=== PATIENT | female | born 1945 | race Caucasian/White ===

== ENCOUNTER 2017-07-01 16:28 | Emergency (ER) | payer MEDICARE, SELFPAY ==
[2017-07-01 16:29] VITALS: BP 188/106; PULSE 82; RESP 18; TEMP 37; O2SAT 98; BMI 24.3
--- NOTE | 2017-07-01 16:39 | NURSING ---
NO OLD EKGS
--- NOTE | 2017-07-01 17:07 | EKG12_ITS ---
Test Reason : PALPS Blood Pressure : / mmHG Vent. Rate : 093 BPM Atrial Rate : 093 BPM P-R Int : 200 ms QRS Dur : 092 ms QT Int : 352 ms P-R-T Axes : 000 -24 073 degrees QTc Int : 437 ms Sinus rhythm with marked sinus arrhythmia Septal infarct , age undetermined Abnormal ECG Confirmed by HAMMAD LLOYD ([id number]), news editor MARISA TORRES ([id number]) on 07/04/2017 2:39:19 PM Referred By: TAYE Confirmed By:HAMMAD LLOYD
--- NOTE | 2017-07-01 17:07 | CT_ITS ---
STUDY: CT ABDOMEN AND PELVIS WITHOUT CONTRAST REASON FOR EXAM: Female, 72 years old. Abdominal pain. History of anal cancer. RADIATION DOSAGE (If Supplied By Facility): CTDIvol = ( 10.5 ) mGy, DLP = ( 409.88 ) mGycm TECHNIQUE: Transaxial images were obtained from the dome of the diaphragm to the symphysis pubis without oral contrast, and without intravenous contrast. Sagittal and coronal images were reconstructed. Individualized dose optimization techniques were used for this CT. COMPARISON: None. FINDINGS: Evaluation of the abdominal viscera is limited in the absence of intravenous contrast. The visualized lung bases are clear. The visualized portions of the heart and pericardium are within normal limits. There are no calcified gallstones present. There are simple cysts noted in the liver. The spleen is normal in size. The pancreas demonstrates an unremarkable unenhanced appearance. The adrenal glands are within normal limits. There are no obstructing renal stones. There is no hydronephrosis. Normal visualized stomach. There is no bowel obstruction or inflammation. There are colonic diverticula without evidence of diverticulitis. The appendix is visualized and appears normal. The aorta is normal in caliber. There is no abdominal or pelvic free air, free fluid, fluid collection or lymphadenopathy. There are no destructive osseous lesions. There is scoliosis noted in the spine. CT/Abdomen/Pelvis without Cont IMPRESSION: No bowel obstruction or inflammation. Colonic diverticuli without evidence of diverticulitis. Normal appendix. No urinary calculi. No hydronephrosis. Hepatic cysts. Scoliosis. Electronically Signed: Jamie Machuca, at 18:01 EDT Tel , Service support ,
--- NOTE | 2017-07-01 17:10 | RAD_ITS ---
STUDY: X-RAY CHEST REASON FOR EXAM: Female, 72 years old. Palpitations TECHNIQUE: Frontal view of the chest COMPARISON: None. FINDINGS: The lungs are clear. There are no pleural effusions. There is no pneumothorax. The heart is normal in size. The visualized osseous structures are within normal limits. RAD/Chest 1 View (Portable) IMPRESSION: No acute thoracic pathology. Electronically Signed: Jamie Machuca, at 17:26 EDT Tel , Service support ,
[2017-07-01 17:22] LABS: Bacteria 0 SEEN /hpf (None Seen); Mucous, Urine 0 SEEN /hpf (<or=2+); Squamous Epithelial Cells - UA 0 SEEN /hpf (5-10); White Blood Cells 0 SEEN /hpf (0-5)
[2017-07-01 17:26] LABS: Absolute Lymphocyte Count 1.61 X10^3/ul (0.83-4.51); Basophil# 0.02 X10^3/uL; Basophil% 0.3 % (0-1); Eosinophil# 0.02 X10^3/uL; Eosinophils% 0.3 % (0-5); Hematocrit 42.7 % (37-47); Hemoglobin 13.8 g/dl (12.0-15.0); Lymphocyte # 1.61 X10^3/ul (4.0); Lymphocyte % 27.1 % (19-41); Mean Corp Hgb Conc 32.3 g/gl (32-36); Mean Corpuscular Hgb 30.4 pg (27.0-32.0); Mean Corpuscular Volume 94.1 fL (81-99); Mean Platelet Vol. 10.8 fl (6.2-12.0); Monocyte# 0.26 X10^3/uL; Monocyte% 4.4 % (0-10); Neutrophil # 4.02 X10^3/uL (2.7-7.7); Neutrophil % 67.7 % (47-70); Platelet Count 286 K/mm3 (150-450); RBC Distribution Width CV 13.5 % (11.6-14.6); RBC Distribution Width SD 46.4 fl (35.1-43.9); Red Blood Count 4.54 M/mm3 (4.2-5.4); White Blood Count 5.9 K/mm3 (4.4-11.0)
[2017-07-01 17:27] LABS: Color, Urine Yellow (Yellow); Glucose, Dipstick Normal (Normal); Ketone-Dipstick 15 mg/dl (Negative); Leukocyte Esterase-Dipstick Negative /ul (Negative); Nitrite-Dipstick Negative (Negative); Occult Blood-Urine 150 /ul (Negative); Protein-Dipstick 100 mg/dl (Negative); Specific Gravity, Urine 1.005 (1.002-1.030); Urine Bilirubin Dipstick Negative (Negative); Urine Clarity Clear (Clear); Urine Urobilinogen Normal (Normal)
[2017-07-01 17:28] LABS: POSITIVE COUNT NO; POSITIVE DIFFERENTIAL NO; POSITIVE MORPHOLOGY NO
[2017-07-01 17:48] LABS: Anion Gap 8 (5-15); BUN 13 mg/dL (7-18); BUN/Creat Ratio 14.8 RATIO (10-20); Calcium,Total 9.1 mg/dL (8.5-10.1); Chloride 105 mmol/L (98-107); Creatinine, Serum 0.88 mg/dL (0.55-1.02); EST Glomerular Filtration Rate 67 mL/min (>60); Est Glom Filt Rate - Afr Amer 81 mL/min (>60); Glucose 112 mg/dL (74-106); Potassium 3.4 mmol/L (3.5-5.1); Sodium Level 141 mmol/L (136-145); Thyroid Stim Hormone (TSH) 1.95 uIU/mL (0.358-3.74)
[2017-07-01 17:49] LABS: Red Blood Cells-Urine 0-5 SEEN /hpf (0-5)
--- NOTE | 2017-07-01 18:17 | ED.VISSUMM ---
- ER Visit Summary Date of Service: 07/01/17 Chief Complaint: [Palpitations] History of Present Illness: The patient is a 72 F [presents to the emergency department chief complaint of palpitations. Patient states that she has had palpitations for years. Patient today was being seen for her 6 month checkup and the nurse practitioner noted that patient's heartbeat was irregular and obtained an EKG which looks suspicious for atrial fibrillation. Patient states that she was seen by her oil spraying machine operator about a week ago and does not believe she was in A. fib at that time. Patient states that she has had palpitations for years however. Patient denies recent illness. Patient has had some intermittent abdominal pain for years. Patient does have a history of ulcerative colitis, mitral valve prolapse kezia anal cancer history and hypothyroidism as well as hypertension.] Physical Examination: [HEENT-PERRLA, EOMI. Cranial nerves II through XII grossly intact. TMs clear. Mucous membranes moist. No adenopathy. Cardiovascular-irregular with no murmurs auscultated. Lungs-clear to auscultation, chest wall stable without crepitus or subcu emphysema Abdomen-normoactive bowel sounds, soft. Patient has some mild tenderness over left lower quadrant. There is no rebound, rigidity, or perineal signs. Extremities-intact ?4, normal range of motion, normal pulses, atraumatic] Test Results: [CBC with differential obtained showed white blood cell count of 5.9, hemoglobin 13.8, hematocrit 43, platelets 286. Chemistries unremarkable. Troponin was 0.07. Urinalysis was normal. TSH was 1.95. EKG obtained showed sinus rhythm with PACs with a ventricular rate of [address] scan of the abdomen pelvis without contrast showed some hepatic cysts, scoliosis, otherwise nothing acute.] Emergency Department Course and Treatment: [I discussed case with Dr. Atif Oseguera who evaluated the EKGs and he is comfortable that this is sinus with PACs did not feel patient needed anticoagulation at this time or emergent hospitalization. He has the patient follow-up with her oil spraying machine operator as an outpatient.] Treatment Plan: [Patient will be discharged to home and advised to follow-up with her oil spraying machine operator within next 5-7 days. Patient also to follow-up with her primary care physician.] Disposition: [Discharged to home in stable condition.] Impression: [Palpitations Abdominal pain-etiology uncertain] This note was generated with [employer] dictation software. It may contain incorrect words, spelling, and punctuation that were not noted in review of the chart prior to signing ED Disposition - Plan for ED Patient: Chief Complaint: Palpitations Referrals: Cortney Palacios [Primary Care Provider] -
--- NOTE | 2017-07-01 18:21 | ED.DCSUM_ITS ---
- ER Visit Summary Date of Service: 07/01/17 Chief Complaint: [Palpitations] History of Present Illness: The patient is a 72 F [presents to the emergency department chief complaint of palpitations. Patient states that she has had palpitations for years. Patient today was being seen for her 6 month checkup and the nurse practitioner noted that patient's heartbeat was irregular and obtained an EKG which looks suspicious for atrial fibrillation. Patient states that she was seen by her community support worker about a week ago and does not believe she was in A. fib at that time. Patient states that she has had palpitations for years however. Patient denies recent illness. Patient has had some intermittent abdominal pain for years. Patient does have a history of ulcerative colitis, mitral valve prolapse kezia anal cancer history and hypothyroidism as well as hypertension.] Physical Examination: [HEENT-PERRLA, EOMI. Cranial nerves II through XII grossly intact. TMs clear. Mucous membranes moist. No adenopathy. Cardiovascular-irregular with no murmurs auscultated. Lungs-clear to auscultation, chest wall stable without crepitus or subcu emphysema Abdomen-normoactive bowel sounds, soft. Patient has some mild tenderness over left lower quadrant. There is no rebound, rigidity, or perineal signs. Extremities-intact ?4, normal range of motion, normal pulses, atraumatic] Test Results: [CBC with differential obtained showed white blood cell count of 5.9, hemoglobin 13.8, hematocrit 43, platelets 286. Chemistries unremarkable. Troponin was 0.07. Urinalysis was normal. TSH was 1.95. EKG obtained showed sinus rhythm with PACs with a ventricular rate of [address] scan of the abdomen pelvis without contrast showed some hepatic cysts, scoliosis, otherwise nothing acute.] Emergency Department Course and Treatment: [I discussed case with Dr. Atif Oseguera who evaluated the EKGs and he is comfortable that this is sinus with PACs did not feel patient needed anticoagulation at this time or emergent hospitalization. He has the patient follow-up with her community support worker as an outpatient.] Treatment Plan: [Patient will be discharged to home and advised to follow-up with her community support worker within next 5-7 days. Patient also to follow-up with her primary care physician.] Disposition: [Discharged to home in stable condition.] Impression: [Palpitations Abdominal pain-etiology uncertain] This note was generated with [employer] dictation software. It may contain incorrect words, spelling, and punctuation that were not noted in review of the chart prior to signing ED Disposition - Plan for ED Patient: Chief Complaint: Palpitations Referrals: Cortney Palacios [Primary Care Provider] -
--- NOTE | 2017-07-01 18:21 | ED.DEP ---
ED Disposition - Plan for ED Patient: Chief Complaint: Palpitations Instructions: ED Palpitations, ED Abdominal Pain Unkn Cause Referrals: Cortney Palacios [Primary Care Provider] - 5-7 Days Additional Instructions: see your pattern mechanic in 3-5 days
[2017-07-01 19:05] VITALS: BP 127/68; PULSE 78; RESP 18; O2SAT 99
== END 2017-07-01 19:21 | disposition home or self-care (01) ==
PROVIDERS: Emergency Provider Emergency Medicine; Family Provider Nurse Practitioner; PCP Nurse Practitioner
DX: R00.2 Palpitations (principal); R10.32 Left lower quadrant pain; I10 Essential (primary) hypertension; I34.1 Nonrheumatic mitral (valve) prolapse; E03.9 Hypothyroidism, unspecified; Z79.82 Long term (current) use of aspirin; Z79.899 Other long term (current) drug therapy; Z85.048 Personal history of other malignant neoplasm of rectum, rectosigmoid junction, and anus
CPT/HCPCS: 71045; 74176; 80048; 81001; 84443; 84484; 85025; 93005; 99284; A4216

== ENCOUNTER → 2019-04-14 12:01 | Outpatient (CLI) | payer MEDICARE, SELFPAY ==
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
== END ==
PROVIDERS: PCP Nurse Practitioner; Referring Provider Nurse Practitioner; Visit Provider Nurse Practitioner
DX: M25.522 Pain in left elbow (principal)
CPT/HCPCS: 73080

== ENCOUNTER → 2019-09-07 15:10 | Outpatient (CLI) | payer MEDICARE, SELFPAY ==
--- NOTE | 2019-09-07 15:18 | RAD_ITS ---
HISTORY: pain ADDITIONAL HISTORY: None provided. COMPARISON: TECHNIQUE: Rib series including FINDINGS: No acute fracture. No consolidation, pleural effusion or pneumothorax. Thoracolumbar scoliosis with degenerative changes. Acute rib fractures can be difficult to visualize radiographically. Follow-up as clinically warranted. RAD/Ribs Bilat 3V No CXR IMPRESSION: No acute rib fracture detected. at 0741 Reported and signed by: Bobbi Maldonado MD Electronically Signed: Bobbi Maldonado MD at 7:41 EDT Tel , Service support ,
--- NOTE | 2019-09-07 15:19 | RAD_ITS ---
HISTORY: pain ADDITIONAL HISTORY: None provided. TECHNIQUE: Lumbar spine 3 views Number of images including paperwork: 2 COMPARISON: None FINDINGS: VERTEBRAE: No acute fracture. VERTEBRAL ALIGNMENT: No traumatic subluxation. Severe thoracolumbar scoliosis with left convex upper curve and right convex lower curve, the latter measuring approximately 45 and the former incompletely visible but measuring at least 40. DISKS AND JOINTS: Discogenic degenerative changes and facet arthropathy. Degenerative changes in the sacroiliac joints. SOFT TISSUES: Unremarkable paraspinous soft tissues. RAD/Lumbar Spine 2 or 3 Views IMPRESSION: 1. No acute findings. 2. Lumbar spondylosis. 3. Thoracolumbar scoliosis. at 0720 Reported and signed by: Bobbi Maldonado MD Electronically Signed: Bobbi Maldonado MD at 7:20 EDT Tel , Service support ,
== END ==
PROVIDERS: PCP Nurse Practitioner; Referring Provider Nurse Practitioner; Visit Provider Nurse Practitioner
DX: M54.5 Low back pain (principal); R07.81 Pleurodynia
CPT/HCPCS: 71110; 72100

== ENCOUNTER 2022-04-22 10:48 | Inpatient (IN) | payer MEDICARE, SELFPAY ==
[2022-04-22 09:05] VITALS: BP 203/112; PULSE 77; RESP 18; TEMP 36.8; O2SAT 98
[2022-04-22 09:09] VITALS: BMI 22.0
[2022-04-22 10:55] VITALS: BP 172/86; PULSE 71; RESP 18; TEMP 36.9; O2SAT 97
--- NOTE | 2022-04-22 10:58 | ECHOD_ITS ---
Reason For Study: HYPERTENSION Procedure This was a 2D Doppler, Color Flow transthoracic echocardiogram. Exam performed portable in patient room. Left Ventricle Normal LV size. Left ventricular systolic function is normal. The estimated ejection fraction is 60 %. Stage 1 diastolic dysfunction. No regional wall motion abnormalities noted. Right Ventricle Normal RV size. Normal systolic function. Atria Normal left atrium. Normal right atrium. Bubble contrast study is positive for PFO. Mitral Valve Mild diffuse mitral valve thickening. Trivial mitral valve insufficiency. Tricuspid Valve Normal tricuspid valve. Aortic Valve Trisinus/trileaflet aortic valve. Mild focal aortic valve calcification. Pulmonic Valve Normal pulmonic valve. Great Vessels Normal aortic root. The pulmonary artery is normal size. Normal inferior vena cava. Pericardium/Pleural No pericardial effusion. Medication Performed a rapid injection of agitated mix of 9 cc saline and 1cc air to assess for atrial septal defect. MMode/2D Measurements & Calculations LVIDd: 3.9 cm IVSd: 0.92 cm LVOT diam: 2.0 cm LVIDs: 2.7 cm LVPWd: 0.91 cm RVDd: 2.7 cm FS: 31.0 % LVOT area: 3.1 cm2 Ao root diam: 3.3 cm LAV(MOD-bp): 33.2 ml LVAd ap4: 22.5 cm2 LAV(MOD-bp) Indexed: 20.0 ml/m2 LVLd ap4: 6.7 cm LAV(MOD-sp2): 29.8 ml EDV(MOD-sp4): 60.9 ml LAV(MOD-sp4): 31.9 ml EDV(sp4-el): 64.3 ml LVAs ap4: 12.4 cm2 LVLs ap4: 5.6 cm ESV(MOD-sp4): 23.0 ml ESV(sp4-el): 23.1 ml EF(MOD-sp4): 62.3 % EF(sp4-el): 64.0 % SV(MOD-sp4): 37.9 ml SV(sp4-el): 41.1 ml LA A4 area: 13.4 cm2 LA dimension(2D): 3.1 cm RA A4 area: 11.7 cm2 Time Measurements MV dec time: 0.30 sec Doppler Measurements & Calculations MV E max mango: 56.1 cm/sec Lat Peak E' Mango: 8.4 cm/sec Med Peak E' Mango: 4.1 cm/sec MV A max mango: 81.0 cm/sec E/E' lat: 6.6 E/E' med: 13.8 MV E/A: 0.69 Ao V2 max: 176.5 cm/sec LV V1 max: 84.7 cm/sec SV(LVOT): 56.3 ml Ao max P.5 mmHg LV V1 max P.9 mmHg Ao V2 mean: 125.8 cm/sec LV V1 mean P.6 mmHg Ao mean P.0 mmHg LV V1 mean: 58.4 cm/sec Ao V2 VTI: 32.1 cm LV V1 VTI: 18.1 cm AV (velocity ratio): 0.57 LISA(I,D): 1.8 cm2 LISA(V,D): 1.5 cm2 PA V2 max: 61.2 cm/sec ECHO/Echo Complete Interpretation Summary Normal LV size. Left ventricular systolic function is normal. The estimated ejection fraction is 60 %. Stage 1 diastolic dysfunction. Mild focal aortic valve calcification. Ordering Physician: Christen Maza Referring Physician: PAULINA CIFUENTES Performed By: Natalia Mcmanus RDCS
--- NOTE | 2022-04-22 10:58 | PCM.HP.STD ---
HPI - General General Date of Admission: 04/22/22 Date of Service: 04/22/22 Chief Complaint: generalized weakness/CP/Reflux HPI Narrative NANI HARDIN, is a 77 F who presented to [facility] with several symptoms including transient chest pain, generalized muscle aches, and weakness as well as reflux. Patient was evidently feeling well up until last evening when her symptoms started. She stated the pain in her chest started at her left elbow and went up her left arm across her chest and down into her right elbow. She had transient acid reflux with this episode. She also reported generalized weakness with body aching all over along with weakness that was present all over her body. The weakness has since resolved and the patient is now able to get up independently to use the bathroom however she states her muscles are sore.. Her blood pressure was noted to be markedly elevated in the 200s systolic with diastolics greater than 100 at the outside facility. Her initial troponin was found to be elevated at 97 with a repeat of 103.3. Given her troponin elevation it was felt that she would potentially need to have cardiology consultation therefore she was transferred here for further care. The patient indicates that she has had history of elevated blood pressure and there have been recent changes to her antihypertensives with an increase in her lisinopril with the last few weeks. She evidently had stopped taking her lisinopril however, it was felt that she had some tongue and lip swelling (angioedema) that might have been related to this so her meteorology instructor stopped this medication. She states she saw her meteorology instructor earlier this week and they were going to start her on a new antihypertensives as well as Eliquis but the prescriptions were never sent to the pharmacy and she tried to call the office but got no response. She is frustrated with her primary meteorology instructor and would like to transfer her care to Dr. Huston if possible. She reports that she had an event monitor at which time paroxysmal atrial fibrillation was identified and that was the reason for potentially initiating her Eliquis. She was in sinus rhythm on admission and we will monitor on telemetry and likely discharge her on Eliquis with referral to Dr. Huston at discharge. At the time of admission at this facility her temperature was 98.2, heart rate 77, blood pressure 102/112, respiratory rate is 18 and oxygen saturations were 98% on room air. Her CBC was unremarkable. Her CMP was unremarkable. Her liver functions are normal. Her TSH was 14.30 and a free T4 is pending. Her repeat troponin here was 104. She was admitted the PCU will be monitored on telemetry. I believe that her troponin elevation is likely related to her severely elevated blood pressure we will check an echocardiogram and try to obtain improved control of her blood pressure. I will refer her to cardiology at outpatient. If she is clinically stable and her troponins do not increase any further I will likely not pursue a stress test during this hospitalization. [facility] Medical History Anal cancer GERD (gastroesophageal reflux disease) Hypothyroidism Irritable bowel disease MVP (mitral valve prolapse) Ovary absent PAF (paroxysmal atrial fibrillation) Ulcerative colitis Vitamin D deficiency Home Medications aspirin 81 mg chewable tablet 81 mg PO DAILY Heart 07/01/17 [History Last Taken Unknown] cholecalciferol (vitamin D3) 25 mcg (1,000 unit) capsule (Vitamin D3) 1,000 unit PO QODAY Supplement 07/01/17 [History Last Taken Unknown] cyanocobalamin (vitamin B-12) 1,000 mcg tablet 1,000 mcg PO QODAY Supplement 07/01/17 [History Last Taken Unknown] levothyroxine 75 mcg tablet 75 mcg PO DAILY Thyroid 07/01/17 [History Last Taken Unknown] lisinopril 2.5 mg tablet 2.5 mg PO DAILY BP 07/01/17 [History Last Taken Unknown] pantoprazole 40 mg tablet,delayed release 40 mg PO DAILY GI 07/01/17 [History Last Taken Unknown] Allergy/AdvReac Type Severity Reaction Status Date / Time atenolol [From Tenormin] Allergy PT UNSURE Verified 04/22/22 09:15 OF REACTION Sulfa (Sulfonamide Allergy Other Verified 07/01/17 16:31 Antibiotics) Family History (Updated 04/22/22 @ 13:[address] Christen Maza DO) Other CAD (coronary artery disease) Heart disease Hypertension Surgical History (Updated 04/22/22 @ 13:[address] Christen Maza DO) History of right oophorectomy Surgical History unable to obtain unable to obtain Social History (Updated 04/22/22 @ 13:[address] Christen Maza DO) household members: spouse housing: house Smoking Status: Never smoker alcohol intake: never substance use type: does not use ROS Constitutional Constitutional: Reports fatigue and weakness; Denies anorexia, change in weight, chills, fever(s), malaise, night sweats or other Eyes Eyes: Denies blurry vision, change in eye color, change in vision, discharge from eye(s), double vision, erythema, eye pain, loss of vision or other ENT HEENT: Reports hearing loss and nasal congestion; Denies abnormal hearing, dysphagia, ear pain, epistaxis, headache(s), nasal discharge, post nasal drip, sinus pressure, sore throat or other Cardiovascular Cardiovascular: Denies chest pain, claudication, dyspnea on exertion, edema, lightheadedness, orthopnea, palpitations, paroxysmal nocturnal dyspnea, rapid heart rate, syncope or other Respiratory/Chest Respiratory/Chest: Denies cough, dyspnea, excessive phlegm production, hemoptysis, productive cough, shortness of breath at rest, shortness of breath with exertion, wheezing or other Gastrointestinal Gastrointestinal: Denies abdominal pain, coffee ground emesis, constipation, diarrhea, dyspepsia, hematemesis, hematochezia, loose stools, melena, nausea, vomiting or other Genitourinary Genitourinary: Reports urinary incontinence; Denies burning urination, difficulty urinating, dysuria, hematuria, nocturia, urinary frequency, urinary hesitancy, urinary urgency or other Musculoskeletal Musculoskeletal: Reports myalgias; Denies arthralgias, back pain, joint pain, joint stiffness, joint swelling, neck pain or other Neurologic Neurologic: Reports headache(s), numbness and paresthesias; Denies abnormal gait, abnormal speech, confusion, disequilibrium, dizziness, focal weakness, seizure-like activity, seizures, syncope, tingling, tremor(s) or other Psychiatric Psychiatric: Reports anxiety; Denies depression, homicidal ideation, suicidal ideation or other Endocrine Endocrinology: Denies change in body appearance, cold intolerance, excessive sweating, heat intolerance, polydipsia, polyuria or other Hematologic/Lymphatic Hematologic/Lymphatic: Reports lymphadenopathy; Denies anemia, easy bleeding, easy bruising or other Allergic/Immunologic Allergic/Immunologic: Denies rhinitis, hives, eczemia, asthma or other Vital Signs Vital Signs Vital Signs: 04/22/22 09:05 04/22/22 10:55 Temperature 98.2 F 98.4 F Temperature Source Oral Oral Pulse Rate 77 71 Respiratory Rate 18 18 Blood Pressure 203/112 H 172/86 H Blood Pressure Mean 142 114 Blood Pressure Source Monitor Monitor Blood Pressure Position Semi-Fowlers Semi-Fowlers Blood Pressure Location Right Arm Right Arm Pulse Ox 98 97 Oxygen Delivery Method Room Air Room Air Weight Weight: 60 kg Body Mass Index (BMI) 22.0 Physical Exam Const alert and oriented x3 Constitutional Narrative: Older, white female, sitting up in bed, very verbose and appears anxious, daughter and granddaughter at bedside, nontoxic and healthy appearing HEENT normocephalic, head/scalp atraumatic, hearing grossly normal bilaterally and moist oral mucous membranes HEENT Narrative: Dentition is fair, Mallampati is 1-2, no thrush Eyes PERRL, EOMs intact bilaterally and conjunctivae normal Eyes Narrative: Scleral icterus Neck No no lymphadenopathy, supple and no JVD Neck Narrative: Very slight submandibular lymphadenopathy bilaterally-patient indicates this is chronic and they have been following it, no thyroid enlargement or nodules noted Resp normal respiratory effort, no retractions, no use of accessory muscles and clear to auscultation bilaterally Auscultation: Negative for crackles, rhonchi or wheezes Cardio regular rate, regular rhythm, S1 normal heart sound, S2 normal heart sound, no murmurs, no rub, no clicks and no JVD Cardio Narrative: S4 gallop present GI normal to inspection, nondistended, normoactive bowel sounds, soft to palpation and non-tender Extremity no clubbing, cyanosis or edema Extremity Narrative: 2+ pedal pulses, 2+ radial pulses, cap refills 2+, tenderness with palpation of large muscle group specifically distal lower extremities but no abnormalities upon observation Skin no rashes or lesions noted, no wounds, skin turgor normal, no jaundice, no petechiae and no mottling Neuro oriented x3, CN's II-XII intact bilaterally, moves all extremities and no focal motor deficits Psych Psych Narrative: Pleasant, somewhat of a tangential thought process Mood & Affect: anxious Results Lab / Micro Data Attestation: I reviewed the patient's lab results. Result Diagrams: 04/22/22 11:07 04/22/22 11:07 Assessment & Plan Assessment/Plan (1) Hypertensive emergency: (2) Myalgia: (3) Elevated troponin: (4) 1st degree AV block: (5) Elevated TSH: PLAN: Plan Hypertensive emergency -Patient presented markedly hypertensive with blood pressures in the 200s over 1 teens systolic with associated troponin elevation and chest pain -Patient is currently chest pain-free -Cycle cardiac enzymes--> 97 and 103.3 prior to transfer -Check echocardiogram -Start Coreg 6.25 twice daily -Patient reports she may be allergic to lisinopril with possible angioedema therefore we will discontinue her lisinopril and start her on amlodipine 5 mg daily -As needed hydralazine available for systolic pressure greater than 180 -Goal blood pressure today between 150 and 180 systolic -We will plan to drop further in the next 24 hours and reassess her symptoms Elevated troponin -Suspect related to the above -Cardiac enzymes cycled -Check echocardiogram -Consider stress test depending on echo and overall clinical symptoms -Patient would like to follow-up with a new meteorology instructor after discharge and will make referral to Dr. Huston First-degree heart block -Stable -No acute issues Elevated TSH -TSH is 14.3 -Check free T4 -Patient has hypothyroidism at baseline and takes levothyroxine Myalgias -Resolving -Check CK Paroxysmal atrial fibrillation -Patient is currently in normal sinus rhythm -Patient states she had an 30-day event monitor which showed periodic episodes of A. fib -Patient is not on rate controlling medication -Patient has not been started on Eliquis although per her the meteorology instructor she had been seeing told her that she was going to start her on Eliquis approximately 5 days ago but never sent a prescription History of ulcerative colitis -Patient states she is had multiple colonoscopies -Patient also with history of anal cancer which is in remission -Patient is not on any baseline medication for her UC -Not anemic -Recommend outpatient follow-up with GI for ongoing recommended colonoscopies History of anal cancer -No acute issues -Remission MVP -Echocardiogram pending GERD -Continue PPI Seasonal allergies -Continue home allergy medicine DVT prophylaxis -Heparin twice daily -SCDs CODE STATUS -Full code as per discussion on admission Charges/Coding Visit Charges Inpatient E&M: 19657 Init Hosp L3
[2022-04-22 11:13] LABS: Hematocrit 41.5 % (37-47); Hemoglobin 13.2 g/dL (12.0-15.0); Mean Corp Hgb Conc 31.8 g/dL (32-36); Mean Corpuscular Hgb 30.3 pg (27.0-32.0); Mean Corpuscular Volume 95.4 fL (81-99); Mean Platelet Vol. 10.1 fl (6.2-12.0); Platelet Count 271 K/mm3 (150-450); RBC Distribution Width CV 13.2 % (11.6-14.6); Red Blood Count 4.35 M/mm3 (4.2-5.4); White Blood Count 6.2 K/mm3 (4.4-11.0)
[2022-04-22 11:37] LABS: ALB/GLOB Ratio 1.1 RATIO (0.9-2.4); AST(SGOT) 11 U/L (15-37); Alanine Aminotransfer ALT/SGPT 14 U/L (13-56); Albumin, Serum 3.9 g/dL (3.2-5.0); Alkaline Phosphatase 64 U/L (45-117); Anion Gap 7 (5-15); BUN 14 mg/dL (7-18); BUN/Creat Ratio 17.3 RATIO (10-20); Calcium,Total 9.1 mg/dL (8.5-10.1); Chloride 109 mmol/L (98-107); Creatinine, Serum 0.81 mg/dL (0.55-1.02); EST Glomerular Filtration Rate 73 mL/min (>60); Est Glom Filt Rate - Afr Amer 89 mL/min (>60); Estimated Creatinine Clearance 52.34 ml/min; Globulin 3.5 g/dL (2.2-4.2); Glucose 105 mg/dL (74-106); Magnesium 2.1 mg/dL (1.6-2.6); Potassium 3.9 mmol/L (3.5-5.1); Protein, Total 7.4 g/dL (6.4-8.2); Sodium Level 143 mmol/L (136-145)
[2022-04-22 12:28] LABS: Troponin-I HS 104 pg/mL (3.0-54.0)
[2022-04-22 13:37] VITALS: BP 142/100; PULSE 82; RESP 16; TEMP 36.7; O2SAT 95
[2022-04-22] MEDS: amLODIPine 5 MG Tablet PO (13:42)
[2022-04-22] MEDS: 0.9% Saline Lock 10 ML Syringe IV (13:42)
[2022-04-22 14:04] VITALS: O2SAT 95
[2022-04-22 14:24] LABS: T4 Free Direct 0.92 ng/dL (0.76-1.46); Troponin-I HS 106 pg/mL (3.0-54.0)
[2022-04-22 14:33] LABS: CPK Total, Creatine Kinase 97 U/L (26-192)
[2022-04-22 14:39] LABS: Mucous, Urine 0 SEEN /hpf (<or=2+)
[2022-04-22 14:47] LABS: Bacteria 2+ /hpf (None Seen); Color, Urine Yellow (Yellow); Glucose, Dipstick Normal (Normal); Ketone-Dipstick Negative (Negative); Leukocyte Esterase-Dipstick 25 /ul (Negative); Nitrite-Dipstick Negative (Negative); Occult Blood-Urine 150 /ul (Negative); Protein-Dipstick 30 mg/dl (Negative); Red Blood Cells-Urine 5-10 SEEN /hpf (0-5); Specific Gravity, Urine 1.015 (1.002-1.030); Squamous Epithelial Cells - UA 0-5 SEEN /hpf (5-10); Urine Bilirubin Dipstick Negative (Negative); Urine Clarity Clear (Clear); Urine Urobilinogen Normal (Normal); White Blood Cells 5-10 SEEN /hpf (0-5)
[2022-04-22 16:38] VITALS: BP 157/83; PULSE 76; RESP 16; TEMP 36.5; O2SAT 95
[2022-04-22 18:25] LABS: Troponin-I HS 104 pg/mL (3.0-54.0)
[2022-04-22 21:09] VITALS: BP 145/106; PULSE 81; RESP 18; TEMP 36.7; O2SAT 97
[2022-04-22] MEDS: Carvedilol 6.25 MG Tablet PO (21:13)
[2022-04-22] MEDS: Heparin Injection (Vial) 5,000 UNIT/ML VIAL 5000 UNIT SC (21:13)
[2022-04-22] MEDS: Acetaminophen 325 MG Tablet 650 MG PO (21:14)
[2022-04-23 03:10] VITALS: BP 134/106; PULSE 49; RESP 18; TEMP 36.7; O2SAT 96
[2022-04-23] MEDS: Levothyroxine 75 MCG Tablet PO (06:03)
[2022-04-23] MEDS: Acetaminophen 325 MG Tablet 650 MG PO (06:04)
[2022-04-23 06:48] LABS: Absolute Lymphocyte Count 1.97 X10^3/uL (0.83-4.51); Basophil# 0.04 X10^3/uL; Basophil% 0.9 % (0-1); Eosinophil# 0.12 X10^3/uL; Eosinophils% 2.8 % (0-5); Hemoglobin 13.3 g/dL (12.0-15.0); Lymphocyte # 1.97 X10^3/ul (0.83-4.51); Lymphocyte % 45.3 % (19-41); Mean Corp Hgb Conc 32.4 g/dL (32-36); Mean Corpuscular Hgb 30.7 pg (27.0-32.0); Mean Corpuscular Volume 94.7 fL (81-99); Mean Platelet Vol. 10.5 fl (6.2-12.0); Monocyte# 0.23 X10^3/uL; Monocyte% 5.3 % (0-10); NRBC Flagged by Analyzer 0 % (0-5); Neutrophil # 1.98 X10^3/uL (2.7-7.7); Neutrophil % 45.5 % (47-70); Platelet Count 266 K/mm3 (150-450); RBC Distribution Width CV 13.4 % (11.6-14.6); RBC Distribution Width SD 46.9 fl (35.1-43.9); Red Blood Count 4.33 M/mm3 (4.2-5.4); White Blood Count 4.4 K/mm3 (4.4-11.0)
[2022-04-23 07:28] VITALS: O2SAT 98
[2022-04-23 07:30] LABS: Anion Gap 9 (5-15); BUN 14 mg/dL (7-18); BUN/Creat Ratio 18.3 RATIO (10-20); Calcium,Total 9.4 mg/dL (8.5-10.1); Chloride 105 mmol/L (98-107); Creatinine, Serum 0.76 mg/dL (0.55-1.02); EST Glomerular Filtration Rate 78 mL/min (>60); Est Glom Filt Rate - Afr Amer 94 mL/min (>60); Estimated Creatinine Clearance 42.39 ml/min; Glucose 94 mg/dL (74-106); Potassium 3.6 mmol/L (3.5-5.1); Sodium Level 141 mmol/L (136-145)
[2022-04-23 07:48] LABS: Phosphorus 3.5 mg/dL (2.5-4.9)
[2022-04-23 08:25] VITALS: BP 131/98; PULSE 78; RESP 16; TEMP 36.5; O2SAT 96
[2022-04-23] MEDS: Aspirin 81 MG TAB.CHEW PO (09:08)
[2022-04-23] MEDS: Carvedilol 6.25 MG Tablet PO (09:08)
[2022-04-23] MEDS: amLODIPine 5 MG Tablet PO (09:09)
[2022-04-23] MEDS: Pantoprazole Sodium 40 MG Tablet PO (09:09)
[2022-04-23] MEDS: Heparin Injection (Vial) 5,000 UNIT/ML VIAL 5000 UNIT SC (09:09)
--- NOTE | 2022-04-23 11:15 | CASEMGMT ---
TAVO PINEDO Face to Face with patient for initial transition planning/care coordination assessment. RN CM introduced self and role at [facility]. Patient lying in bed, alert and oriented, family is at bedside. Patient willing to participate in assessment and is able to answer all questions appropriately. Care providers, pharmacy, and demographics verified. Patient wishes to discharge home, denies need for home health at this time. Patient states she has no further needs or concerns at this time. CM to follow for discharge planning needs that may arise. PCP: Alisia Goode NP Specialists: Robel butter grader; Alize urologist Preferred Pharmacy: [facility] Insurance: [facility] Prescription Benefit: yes Living Will/HPOA: yes, daughter Ena You LNOK: , daughter Living Arrangements: Patient lives with in a mobile home with 3-5 steps to enter. Patient states she is independent at home. Transportation: self, daughter DME/HHC: Patient has shower chair, cane, grab bars, walker, rollator at home. No previous HHC or SNF. Disposition Plan: Patient to discharge home with family support and follow-up plans in place. Janice VAUGHN, RN, CM
--- NOTE | 2022-04-23 14:18 | DS.PCM_ITS ---
Providers Date of Admission: 04/22/22 Date of Discharge: 04/23/22 Primary Care Physician: ASHLIE Hatch Reason For Visit: NSTEMI/HTN EMERGENCY Diagnosis Discharge Diagnosis (1) Hypertensive emergency: Status: Acute Code(s): I16.1 - Hypertensive emergency (2) Myalgia: Status: Acute Code(s): M79.10 - Myalgia, unspecified site (3) Elevated troponin: Status: Acute Code(s): R77.8 - Other specified abnormalities of plasma proteins (4) 1st degree AV block: Status: Acute Code(s): I44.0 - Atrioventricular block, first degree (5) Elevated TSH: Status: Acute Code(s): R79.89 - Other specified abnormal findings of blood chemistry Medications at Discharge Home Medications aspirin 81 mg chewable tablet 81 mg PO DAILY Heart 07/01/17 cholecalciferol (vitamin D3) 25 mcg (1,000 unit) capsule (Vitamin D3) 1,000 unit PO QODAY Supplement 07/01/17 cyanocobalamin (vitamin B-12) 1,000 mcg tablet 1,000 mcg PO QODAY Supplement 07/01/17 pantoprazole 40 mg tablet,delayed release 40 mg PO DAILY GI 07/01/17 bimatoprost 0.01 % eye drops (Lumigan) 1 drp EACH EYE DAILY Glaucoma 04/22/22 amlodipine 10 mg tablet 10 mg PO DAILY #10 tabs 04/23/22 apixaban 5 mg tablet (Eliquis) 5 mg PO BID #60 tabs 04/23/22 levothyroxine 75 mcg tablet 88 mcg PO .Every other day Thyroid #15 tabs 04/23/22 Hospital Course Operations None Procedures 2-D Echocardiogram and EKG Summary of Care Provided Minutes Spent on Discharge: 36 Hospital Course: Mrs. Pineda is a 77-year-old white female who presented to [facility] with several symptoms including transient chest pain, generalized muscle aches, and weakness as well as reflux.? Patient was?evidently feeling well up until the evening prior to presentation when her symptoms started. She stated the pain in her chest started at her left elbow and went up her left arm across her chest and down into her right elbow.? She had transient acid reflux with this episode.? She also reported generalized weakness with body aching all over along with weakness that was present all over her body.? The weakness has since resolved and the patient is now able to get up independently to use the bathroom however she states her muscles are sore..? Her blood pressure was noted to be markedly elevated in the 200s systolic with diastolics greater than 100 at the outside facility.? Her initial troponin was found to be elevated at 97 with a repeat of 103.3.? Given her troponin elevation, it was felt that she would potentially need to have cardiology consultation therefore she was transferred here for further care, however the case was not discussed with cardiology prior to transport.? The patient indicated that she has had history of elevated blood pressure and there have been recent changes to her antihypertensives with an increase in her lisinopril within the last few weeks.? She had stopped taking her lisinopril however, as it was felt that she had some tongue and lip swelling (angioedema) that might have been related to this.? She stateed she saw her aircraft maintenance manager earlier in the week prior to presentation and they were going to start her on a new antihypertensives as well as Eliquis but the prescriptions were never sent to the pharmacy and she tried to call the office but got no response.? She is frustrated with her primary aircraft maintenance manager and would like to transfer her care to Dr. Huston if possible.? She reports that she had an event monitor at which time paroxysmal atrial fibrillation was identified and that was the reason for potentially initiating her Eliquis.? She was admitted to the PCU and her cardiac enzymes were cycled. We did assess a CPK given her myalgias which was normal. Again, her initial was 97 with a repeat of 103. Here they were 104, 106, and 104 patient had no chest pain during her hospital course. We initially started her on Coreg 6.25 and amlodipine 5 mg however she developed some bradycardia with the Coreg so this was discontinued and the amlodipine was increased to 10 mg. By the time of discharge we were able to get her blood pressures down into the 130s systolic over 98 diastolic. An echocar diogram was done and showed a normal LV with an EF of 60%, stage I diastolic dysfunction and mild aortic valve calcification., She did have diffuse mitral valve thickening but no insufficiency, echo was positive for PFO however patient did report on admission that she has a history and this is known. I suspect she will need some ongoing titration and have recommended follow-up blood pressure check within the week with her primary care provider and a follow-up appointment with her primary care provider within the next 2 weeks. Since she has a history of atrial fibrillation we did go ahead and send a 1 month supply of Eliquis to her pharmacy as well as a 1 month supply of amlodipine with 1 month refill. We did also give her referral for Dr. Huston given her desire to transfer care. I did recommend she follow-up with him in the next month. Discharge diagnoses: Hypertensive emergency-resolved Elevated troponin secondary to markedly elevated blood pressure First-degree heart block Elevated TSH with normal free T4 Myalgias Stage I diastolic dysfunction PAF History of ulcerative colitis History of anal cancer MVP PFO GERD Seasonal allergies Physical Exam Const alert, oriented x3, no apparent distress, average body habitus, no limitations, healthy appearing and well nourished Constitutional Narrative: Older, white female, sitting up in bed, very verbose and appears anxious, daughter and granddaughter at bedside, nontoxic and healthy appearing General Appearance: cooperative, comfortable, well kempt and well developed Orientation / Consciousness: awake, oriented to person, oriented to place and oriented to time Exam Limitations: no limitations HEENT normocephalic, head/scalp atraumatic, hearing grossly normal bilaterally and moist oral mucous membranes HEENT Narrative: Dentition is fair, Mallampati is 2, no thrush Eyes PERRL, EOMs intact bilaterally and conjunctivae normal Eyes Narrative: No scleral icterus Neck No no lymphadenopathy, supple, no JVD and no carotid bruits Neck Narrative: Very slight submandibular lymphadenopathy bilaterally-patient indicates this is chronic and they have been following it, no thyroid enlargement or nodules noted Resp normal respiratory effort, no retractions, no use of accessory muscles and clear to auscultation bilaterally Auscultation: Negative for crackles, rhonchi or wheezes Cardio regular rate, regular rhythm, S1 normal heart sound, S2 normal heart sound, no murmurs, no rub, no clicks and no JVD Cardio Narrative: S4 gallop present GI normal to inspection, nondistended, normoactive bowel sounds, soft to palpation and non-tender Extremity no clubbing, cyanosis or edema Extremity Narrative: 2+ pedal pulses, 2+ radial pulses, cap refills 2+, tenderness of large muscle groups improved in last 24 hours Skin no rashes or lesions noted, no wounds, skin turgor normal, no jaundice, no petechiae and no mottling Neuro oriented x3, CN's II-XII intact bilaterally, moves all extremities, no focal motor deficits and no sensory deficits noted Speech: speech normal Motor Exam: strength 5/5 throughout Psych Psych Narrative: Pleasant, somewhat of a tangential thought process, anxious Mood & Affect: anxious Weight / BMI Weight Weight: 60 kg Body Mass Index (BMI) 22.0 ABG / Lab / Microbiology Data Result Diagrams: 04/23/22 05:55 04/23/22 05:55 Laboratory: Laboratory Results - last 24 hr 04/22/22 10:55: Urine Color Yellow, Urine Clarity Clear, Urine pH 6.0, Ur Specific [place] 1.015, Urine Protein 30 H, Urine Glucose (UA) Normal, Urine Ketones Negative, Urine Occult Blood 150 H, Urine Nitrite Negative, Urine Bilirubin Negative, Urine Urobilinogen Normal, Ur Leukocyte Esterase 25 H, Urine RBC 5-10 SEEN, Urine WBC 5-10 SEEN, Ur Squamous Epith Cells 0-5 SEEN, Urine Bacteria 2+, Urine Mucus 0 SEEN 04/22/22 13:57: Troponin I High Sens 106 H, Free T4 0.92 04/22/22 13:57: Total Creatine Kinase 97 04/22/22 17:52: Troponin I High Sens 104 H 04/23/22 05:55: Sodium 141, Potassium 3.6, Chloride 105, Carbon Dioxide 27.0, Anion Gap 9, BUN 14, Creatinine 0.76, Estim Creat Clear Calc 42.39, Est GFR (MDRD) Af Amer 94, Est GFR (MDRD) Non-Af 78, BUN/Creatinine Ratio 18.3, Glucose 94, Calcium 9.4 04/23/22 05:55: WBC 4.4, RBC 4.33, Hgb 13.3, Hct 41.0, MCV 94.7, MCH 30.7, MCHC 32.4, RDW Std Deviation 46.9 H, RDW Coeff of Reinaldo 13.4, Plt Count 266, MPV 10.5, Immature Gran % (Auto) 0.200, Neut % (Auto) 45.5 L, Lymph % (Auto) 45.3 H, [place] % (Auto) 5.3, Eos % (Auto) 2.8, Baso % (Auto) 0.9, Absolute Neuts (auto) 2.0, Absolute Lymphs (auto) 1.97, Nucleated RBC % 0 04/23/22 05:55: Phosphorus 3.5 Radiography Diagnostic Testing: Radiology Impression Echocardiogram 04/22/22 10:58 Interpretation Summary Normal LV size. Left ventricular systolic function is normal. The estimated ejection fraction is 60 %. Stage 1 diastolic dysfunction. Mild focal aortic valve calcification. Ordering Physician: Christen Maza Referring Physician: PAULINA CIFUENTES Performed By: Natalia Mcmanus RDCS Meaningful Use Info Meaningful Use Diagnoses (Choose all that apply): None applicable Discharge Plan Admission Admit Date/Time: 04/22/22 08:57 Primary Reason for Your Visit: Troponin elevation Attending Provider: Christen Maza Primary Care Provider: Paulina Cifuentes NP Consulting Providers: Aleja Lira Discharge Orders/Prescriptions Prescriptions: New amlodipine 10 mg Tablet 10 mg PO DAILY Qty: 10 0RF Eliquis 5 mg tablet 5 mg PO BID Qty: 60 0RF Continued cyanocobalamin (vitamin B-12) 1,000 MCG tablet 1,000 mcg PO QODAY pantoprazole 40 MG tablet 40 mg PO DAILY cholecalciferol (vitamin D3) [Vitamin D3] 1,000 UNIT capsule 1,000 unit PO QODAY aspirin 81 MG tablet,chewable 81 mg PO DAILY Lumigan 0.01 % Drops 1 drp EACH EYE DAILY Changed levothyroxine 75 MCG tablet 88 mcg PO .Every other day Qty: 15 0RF Discontinued lisinopril 2.5 MG tablet 2.5 mg PO DAILY Referrals / Follow Up: Alisia Goode NP-C [Med Staff - Adv Practice Prof] - Within 1 Week (Call later today or tomorrow to make a follow-up appointment to be seen for posthospital follow-up and blood pressure check) Paulina Cifuentes NP, SUPERVISING FILM OR VIDEOTAPE EDITOR-C [Primary Care Provider] - Saud Huston MD [Med Staff - Active Staff] - Within 1 Month (call for an appt on 04/24/2022) Disposition Disposition (needs filled in before D/C Order can be placed): Home, Self Care Charges/Coding Visit Charges Inpatient E&M: 79224 Disch Hosp >30min
--- NOTE | 2022-04-23 16:11 | PHA.DC.MC ---
Pharmacy Service has performed discharge medication reconciliation and counseling for this patient. 1. AMLODIPINE 10MG PO DAILY 2. APIXABAN 5MG PO BID The patient's discharge medication list was reviewed for discrepancies and discrepancies were resolved. Home Medications aspirin 81 mg chewable tablet 81 mg PO DAILY Heart 07/01/17 cholecalciferol (vitamin D3) 25 mcg (1,000 unit) capsule (Vitamin D3) 1,000 unit PO QODAY Supplement 07/01/17 cyanocobalamin (vitamin B-12) 1,000 mcg tablet 1,000 mcg PO QODAY Supplement 07/01/17 pantoprazole 40 mg tablet,delayed release 40 mg PO DAILY GI 07/01/17 bimatoprost 0.01 % eye drops (Lumigan) 1 drp EACH EYE DAILY Glaucoma 04/22/22 amlodipine 10 mg tablet 10 mg PO DAILY #10 tabs 04/23/22 apixaban 5 mg tablet (Eliquis) 5 mg PO BID #60 tabs 04/23/22 levothyroxine 75 mcg tablet 88 mcg PO .Every other day Thyroid #15 tabs 04/23/22 The patient was counseled on the following discharge medications and changes in medications for homegoing were reviewed. The Reason for Use, instructions for use, and potential side effects were reviewed for all new medications. The patient's questions regarding all of their medications were answered. The patient was able to verbally demonstrate an understanding of their discharge medications. Patient counseled by clinical pharmacy coordinatorYuki.
[2022-04-23 16:13] VITALS: BP 95/61; PULSE 69; RESP 16; TEMP 36.5; O2SAT 95
== END 2022-04-23 16:52 | disposition home or self-care (01) | DRG 305 ==
PROVIDERS: Admitting Provider Internal Medicine; PCP Nurse Practitioner; Visit Provider Internal Medicine
DX: I16.1 Hypertensive emergency (principal); Q21.12 Patent foramen ovale; I48.0 Paroxysmal atrial fibrillation; E03.9 Hypothyroidism, unspecified; I44.0 Atrioventricular block, first degree; M79.10 Myalgia, unspecified site; I34.1 Nonrheumatic mitral (valve) prolapse; K21.9 Gastro-esophageal reflux disease without esophagitis; J30.2 Other seasonal allergic rhinitis; I10 Essential (primary) hypertension; Z79.82 Long term (current) use of aspirin; Z79.899 Other long term (current) drug therapy; Z85.048 Personal history of other malignant neoplasm of rectum, rectosigmoid junction, and anus; Z87.19 Personal history of other diseases of the digestive system
CPT/HCPCS: 36415; 80048; 80053; 81001; 82550; 83735; 84100; 84439; 84443; 84484; 85025; 85027; 87426; 93306; 94668; A4216

== ENCOUNTER → 2022-05-31 | Outpatient (CLI) | payer MEDICARE, SELFPAY | END | disposition home or self-care (01) | PROVIDERS: PCP Nurse Practitioner Family; Referring Provider Internal Medicine Cardiovascular Disease; Visit Provider Internal Medicine Cardiovascular Disease | DX: I10 Essential (primary) hypertension (principal); Q21.12 Patent foramen ovale | CPT/HCPCS: 93225; 93226 ==

== ENCOUNTER 2022-11-07 10:43 | Observation (INO) | payer MEDICARE, SELFPAY ==
[2022-11-07] VITALS (12 sets, daily range): BP systolic 107–201; BP diastolic 63–133; PULSE 71–108; RESP 14–18; TEMP 36.1–36.9; O2SAT 93–98; BMI 21.8
--- NOTE | 2022-11-07 11:19 | EX.ED.DYSGE1 ---
HPI History of Present Illness Chief Complaint: Hypertension Informant: patient Onset/Context/Timing Onset: Today Context: Gradual Onset Timing: Continuous Worsened by: Nothing Relieved by: Nothing Narrative Narrative: Patient presents with elevated blood pressure that was noticed today. Patient was scheduled to have cataract surgery today. Patient had blood pressures of 211/114, 222/139, and 209/112 in preop area. Patient had her surgery canceled and was transferred to the emergency department. Patient denies any symptoms. Patient states she had a similar episode in April and she was admitted to the hospital. Patient states she was recently prescribed hydrochlorothiazide but has not started that yet. Patient noted that her blood pressure yesterday was normal. Patient states she feels anxious over her impending surgery. [facility] Medical History 1st degree AV block Abdominal pain Abnormal bone density screening Abnormal MRI of head Anal cancer Anxiety and depression Balance disorder Bicuspid aortic valve Cataract Colon polyp COVID-19 Cystocele with prolapse Degeneration, intervertebral disc, cervical Degenerative scoliosis in adult patient Diverticulosis Epigastric pain Essential hypertension Fatigue Female bladder prolapse Fibromyalgia Gall bladder polyp GERD (gastroesophageal reflux disease) Glaucoma Hearing loss Hepatic cyst Hiatal hernia History of cervical cancer History of rectal cancer Hypokalemia Hypothyroidism Irritable bowel disease Left elbow pain Leg cramps Low back pain Lymphadenopathy, cervical MVP (mitral valve prolapse) Neck pain Neuropathy Osteoporosis Ovary absent PAF (paroxysmal atrial fibrillation) Paresthesia Patent foramen ovale Polyneuropathy Post-COVID chronic fatigue Postmenopausal Scoliosis Thoracic radiculopathy due to osteoarthritis of spine Ulcerative colitis Vitamin B12 deficiency Vitamin D deficiency Home Medications pantoprazole 40 mg tablet,delayed release 40 mg PO DAILY GI 07/01/17 [History Last Taken Unknown] bimatoprost 0.01 % eye drops (Lumigan) 1 drp EACH EYE DAILY Glaucoma 04/22/22 [History Last Taken Unknown] chlorpheniramine maleate 4 mg tablet (Allergy (chlorpheniramine)) 4 mg PO Q8H PRN 05/15/22 [History Last Taken Unknown] levothyroxine 88 mcg tablet 88 mcg PO DAILY 05/17/22 [History Last Taken Unknown] lisinopril 20 mg tablet 20 mg PO DAILY #90 tabs 05/17/22 [Rx Last Taken Unknown] aspirin 81 mg tablet,delayed release (Adult Aspirin Regimen) 81 mg PO DAILY 06/25/22 [History Last Taken Unknown] acetaminophen 500 mg capsule 500 mg PO Q6H PRN 10/15/22 [History Last Taken Unknown] cholecalciferol (vitamin D3) 50 mcg (2,000 unit) capsule 50 mcg PO DAILY 10/15/22 [History Last Taken Unknown] hydrochlorothiazide 25 mg tablet 25 mg PO DAILY #30 tabs 10/15/22 [Rx Last Taken Unknown] multivitamin (One Daily Multivitamin tablet) 1 tab PO DAILY 10/15/22 [History Last Taken Unknown] Allergy/AdvReac Type Severity Reaction Status Date / Time ofloxacin Allergy Mild OTHER Verified 11/07/22 10:51 amlodipine Allergy Swelling Verified 11/07/22 10:51 apixaban [From Eliquis] Allergy SWELLING Verified 11/07/22 10:51 atenolol [From Tenormin] Allergy PT UNSURE Verified 11/07/22 10:51 OF REACTION Sulfa (Sulfonamide Allergy Other Verified 11/07/22 10:51 Antibiotics) brimonidine AdvReac Mild OTHER Verified 11/07/22 10:51 Family History Father Prostate cancer Grandmother Liver cancer Mother Hypertension Diabetes Brother Bladder cancer H/O heart surgery Other CAD (coronary artery disease) Heart disease Surgical History History of rectal surgery History of right oophorectomy History of tonsillectomy Social History household members: spouse housing: house Smoking Status: Never smoker alcohol intake: never substance use type: does not use caffeine: Yes Type: coffee and tea ROS ROS ED Constitutional Constitutional ED: Reports chills; Denies fever(s) Eyes Eyes: Denies blurry vision or change in vision ENT ENT ED: Reports rhinorrhea and sore throat Cardiovascular Cardiovascular: Denies chest pain or palpitations Respiratory/Chest Respiratory/Chest: Denies cough or dyspnea Gastrointestinal Gastrointestinal: Reports nausea; Denies vomiting Genitourinary Genitourinary ED: Reports urinary frequency; Denies dysuria or hematuria Musculoskeletal Musculoskeletal: Reports back pain and neck pain Integumentary Denies abscess or rash Neurologic Neurologic: Denies headache(s) or weakness Allergic/Immunologic Allergic/Immunologic ED: Denies mouth swelling or urticaria EXAM Physical Exam Const Vital Signs: 11/07/22 10:45 11/07/22 11:08 11/07/22 11:50 Temperature 97.2 F L Temperature Source Temporal Pulse Rate 103 H Respiratory Rate 16 Respiratory Effort Normal Non-Labored Blood Pressure 201/133 H 180/102 H Blood Pressure Mean 155 128 Pulse Ox 96 Oxygen Delivery Method Room Air 11/07/22 12:35 Temperature Temperature Source Pulse Rate 85 Respiratory Rate 14 Respiratory Effort Blood Pressure 187/99 H Blood Pressure Mean 128 Pulse Ox 95 Oxygen Delivery Method Room Air Positive well nourished and well developed General Appearance ED: well developed and NAD HEENT Reports moist mucous membranes Neck supple and no JVD Resp normal respiratory effort and clear to auscultation bilaterally Cardio regular rate and regular rhythm GI normal to inspection, nondistended, normoactive bowel sounds and non-tender Palpation: soft Extremity normal to inspection General Extremety ED: Negative for edema or tenderness General Extremity: Negative for edema Neuro oriented x3, CN's II-XII intact bilaterally and no sensory deficits noted Sensorium / Orientation: alert Motor Exam: strength 5/5 throughout Psych mental status grossly normal Skin no rashes or lesions noted MDM MDM MDM Narrative Medical decision making narrative: Differential diagnosis includes cardiac dysrhythmia, cardiac ischemia, hypertensive urgency, hypertensive emergency, pneumonia, pneumothorax, and anxiety. EKG will be obtained to assess for cardiac dysrhythmia and cardiac ischemia. CBC will be obtained to assess for anemia and leukocytosis. Basic metabolic profile will be obtained to assess for electrolyte abnormality and renal function. High-sensitivity troponin will be obtained to assess for cardiac ischemia. 2-hour high-sensitivity troponin will be obtained to assess for ongoing cardiac ischemia. Chest x-ray will be obtained to assess for pneumonia, pneumothorax, and widened mediastinum. Lab Data Attestation: I reviewed the patient's lab results. Lab results narrative: CBC was reviewed and was within normal limits. Basic metabolic profile was reviewed. Potassium was low at 2.9. The remainder was within normal limits. High-sensitivity troponin was reviewed and was elevated at 184. Urinalysis was reviewed. There is no evidence of urinary tract infection or hematuria. Labs: Laboratory Results - last 24 hr 11/07/22 11/07/22 11:42 11:50 WBC 6.8 RBC 4.44 Hgb 13.4 Hct 42.1 MCV 94.8 MCH 30.2 MCHC 31.8 L RDW Std Deviation 48.8 H RDW Coeff of Reinaldo 14.0 Plt Count 333 MPV 10.6 Immature Gran % (Auto) 0.400 Neut % (Auto) 69.3 Lymph % (Auto) 23.7 [place] % (Auto) 5.1 Eos % (Auto) 0.9 Baso % (Auto) 0.6 Absolute Neuts (auto) 4.7 Absolute Lymphs (auto) 1.62 Nucleated RBC % 0 Sodium 140 Potassium 2.9 L Chloride 104 Carbon Dioxide 27.0 Anion Gap 9 BUN 16 Creatinine 0.86 Estim Creat Clear Calc 49.30 Est GFR (MDRD) Af Amer 83 Est GFR (MDRD) Non-Af 68 BUN/Creatinine Ratio 18.7 Glucose 119 H Calcium 10.0 Troponin I High Sens 184 H* Urine Color Yellow Urine Clarity Clear Urine pH 7.0 Ur Specific [place] 1.010 Urine Protein 15 H Urine Glucose (UA) Normal Urine Ketones 50 H Urine Occult Blood 50 H Urine Nitrite Negative Urine Bilirubin Negative Urine Urobilinogen Normal Ur Leukocyte Esterase Negative Urine RBC 0-5 SEEN Urine WBC 0 SEEN Ur Squamous Epith Cells 0 SEEN Urine Bacteria 0 SEEN Urine Mucus 0 SEEN Radiography Chest X-Ray - ED: 2 View, Read by ED Physician, Read by Radiologist and No Acute Disease Diagnostic Testing: Clinical Impression(s) from Imaging Studies Chest X-Ray 11/07/22 12:03 IMPRESSION: No radiographic evidence of acute cardiopulmonary disease. Electronically Signed: Mary George MD at 12:30 EDT , PA and lateral chest x-ray was obtained. There are 2 views. On my independent interpretation, lung basilio are clear. There is normal cardiac silhouette. Bony thorax is normal. There is no acute process noted. Radiologist also interpreted the x-ray and agrees. EKG Initial EKG: Attestation: I personally reviewed and interpreted this EKG as follows: Interpretation: Sinus Rhythm (With first-degree AV block with occasional PVCs and PACs with a rate of 82) and No Acute Injury Pattern Comments: EKG was obtained. On my independent interpretation, it showed a normal sinus rhythm with a first-degree AV block with occasional PACs and PVCs with a rate of 82. [place] interval was prolonged at 250 ms. QRS interval was normal at 92 ms. QTc interval was normal at 448 ms. There is borderline left axis deviation at -27. There are no acute ST or T wave changes. Prior EKG tracings: available for review Prior: Unchanged (07/01/2022) Management Discussion w/another healthcare provider: Hospitalist Additional Tests and Interventions Additional Tests or Interventions: Because of the hypokalemia, serum magnesium was ordered. Treatment and Re-Evaluation :: Patient was given a dose of hydralazine. Patient's blood pressure improved to 187/99. Patient was advised of her findings. Patient was advised of the need for admission. Patient is agreeable with this. Patient was given a repeat dose of hydralazine. Patient was given a dose of potassium. Patient was given aspirin. Case was discussed with the hospitalist. He will admit the patient to his service. Patient and family understood and were agreeable with the plan. All questions were answered. Discharge Plan Triage Chief Complaint: Hypertension ED Provider: Rogers Suárez Dx/Rx/DC Orders Clinical Impression: Elevated troponin, Essential hypertension Prescriptions: No Action levothyroxine 88 mcg tablet 88 mcg PO DAILY lisinopril 20 mg tablet 20 mg PO DAILY Qty: 90 4RF chlorpheniramine maleate [Allergy (chlorpheniramine)] 4 mg tablet 4 mg PO Q8H PRN Rx Instructions: do not exceed 2 doses per 24 hrs cholecalciferol (vitamin D3) 50 mcg (2,000 unit) capsule 50 mcg PO DAILY multivitamin [One Daily Multivitamin] Tablet 1 tab PO DAILY acetaminophen 500 mg capsule 500 mg PO Q6H PRN hydrochlorothiazide 25 mg tablet 25 mg PO DAILY Qty: 30 11RF pantoprazole 40 MG tablet 40 mg PO DAILY Lumigan 0.01 % Drops 1 drp EACH EYE DAILY aspirin [Adult Aspirin Regimen] 81 mg tablet,delayed release (DR/EC) 81 mg PO DAILY Primary Care Provider: Alisia Goode Referrals: Alisia Goode, MARKETING PROFESSOR-C [Primary Care Provider] - Disposition Disposition: Acute Care Hospital [facility]
[2022-11-07] MEDS: hydrALAZINE 20 MG/ML Vial 5 MG IV ×2 (11:52→13:05)
[2022-11-07 11:57] LABS: Absolute Lymphocyte Count 1.62 X10^3/uL (0.83-4.51); Absolute Neutrophil Count 4.7 X10^3/uL (2.0-7.7); Basophil# 0.04 X10^3/uL; Basophil% 0.6 % (0-1); Eosinophil# 0.06 X10^3/uL; Eosinophils% 0.9 % (0-5); Hematocrit 42.1 % (37-47); Hemoglobin 13.4 g/dL (12.0-15.0); Lymphocyte # 1.62 X10^3/ul (0.83-4.51); Lymphocyte % 23.7 % (19-41); Mean Corp Hgb Conc 31.8 g/dL (32-36); Mean Corpuscular Hgb 30.2 pg (27.0-32.0); Mean Corpuscular Volume 94.8 fL (81-99); Mean Platelet Vol. 10.6 fl (6.2-12.0); Monocyte# 0.35 X10^3/uL; Monocyte% 5.1 % (0-10); NRBC Flagged by Analyzer 0 % (0-5); Neutrophil # 4.73 X10^3/uL (2.7-7.7); Neutrophil % 69.3 % (47-70); Platelet Count 333 K/mm3 (150-450); RBC Distribution Width SD 48.8 fl (35.1-43.9); Red Blood Count 4.44 M/mm3 (4.2-5.4); White Blood Count 6.8 K/mm3 (4.4-11.0)
[2022-11-07 11:59] LABS: Bacteria 0 SEEN /hpf (None Seen); Mucous, Urine 0 SEEN /hpf (<or=2+); Squamous Epithelial Cells - UA 0 SEEN /hpf (5-10); White Blood Cells 0 SEEN /hpf (0-5)
--- NOTE | 2022-11-07 12:03 | RAD_ITS ---
INDICATION: Hypertension EXAMINATION/TECHNIQUE: X-RAY - XR Chest 2 Views COMPARISON: Prior study dated: July 01, 2017 FINDINGS: LINES/DEVICES: None. LUNGS: No new consolidation, edema or effusion. There is a stable curvilinear left basilar opacity which may reflect atelectasis and/or scarring. No pneumothorax. MEDIASTINUM AND CARDIOVASCULAR STRUCTURES: Cardiac silhouette not enlarged. Central airways and mediastinal contour are unremarkable. BONES AND SOFT TISSUES: There is a dextroscoliosis of the thoracolumbar spine. RAD/Chest PA and Lateral IMPRESSION: No radiographic evidence of acute cardiopulmonary disease. Electronically Signed: Mary George MD at 12:30 EDT ,
[2022-11-07 12:09] LABS: Color, Urine Yellow (Yellow); Glucose, Dipstick Normal (Normal); Ketone-Dipstick 50 mg/dl (Negative); Leukocyte Esterase-Dipstick Negative /ul (Negative); Nitrite-Dipstick Negative (Negative); Occult Blood-Urine 50 /ul (Negative); Protein-Dipstick 15 mg/dl (Negative); Urine Bilirubin Dipstick Negative (Negative); Urine Clarity Clear (Clear); Urine Urobilinogen Normal (Normal)
[2022-11-07 12:25] LABS: Anion Gap 9 (5-15); BUN 16 mg/dL (7-18); BUN/Creat Ratio 18.7 RATIO (10-20); Chloride 104 mmol/L (98-107); Creatinine, Serum 0.86 mg/dL (0.55-1.02); EST Glomerular Filtration Rate 68 mL/min (>60); Est Glom Filt Rate - Afr Amer 83 mL/min (>60); Glucose 119 mg/dL (74-106); Potassium 2.9 mmol/L (3.5-5.1); Sodium Level 140 mmol/L (136-145); Troponin-I HS (w/2H Reflex) 184 pg/mL (3.0-54.0)
[2022-11-07 12:33] LABS: Red Blood Cells-Urine 0-5 SEEN /hpf (0-5)
--- NOTE | 2022-11-07 12:55 | HP.PCM.HOS_ITS ---
HPI - General General Date of Admission: 11/07/22 Date of Service: 11/07/22 HPI Narrative NANI HARDIN, is a 77 F who presents with elevated blood pressure. Patient was scheduled to undergo cataract surgery she was however found to have markedly elevated blood pressure. Patient was subsequently sent to the emergency department. In the ED patient was found to have systolic blood pressure greater than 200. She was also found to have elevated troponin. On further questioning she did admit to some discomfort in the chest. Denied any shortness of breath n o nausea no vomiting. Treatment of her markedly elevated blood pressure was initiated in the ED admitted to monitored bed for further management [facility] Medical History 1st degree AV block Abdominal pain Abnormal bone density screening Abnormal MRI of head Anal cancer Anxiety and depression Balance disorder Bicuspid aortic valve Cataract Colon polyp COVID-19 Cystocele with prolapse Degeneration, intervertebral disc, cervical Degenerative scoliosis in adult patient Diverticulosis Epigastric pain Essential hypertension Fatigue Female bladder prolapse Fibromyalgia Gall bladder polyp GERD (gastroesophageal reflux disease) Glaucoma Hearing loss Hepatic cyst Hiatal hernia History of cervical cancer History of rectal cancer Hypokalemia Hypothyroidism Irritable bowel disease Left elbow pain Leg cramps Low back pain Lymphadenopathy, cervical MVP (mitral valve prolapse) Neck pain Neuropathy Osteoporosis Ovary absent PAF (paroxysmal atrial fibrillation) Paresthesia Patent foramen ovale Polyneuropathy Post-COVID chronic fatigue Postmenopausal Scoliosis Thoracic radiculopathy due to osteoarthritis of spine Ulcerative colitis Vitamin B12 deficiency Vitamin D deficiency Home Medications pantoprazole 40 mg tablet,delayed release 40 mg PO DAILY ACID REFLUX 07/01/17 [History Last Taken 11/06/22] bimatoprost 0.01 % eye drops (Lumigan) 1 drp EACH EYE DAILY GLAUCOMA 04/22/22 [History Last Taken 11/07/22] levothyroxine 88 mcg tablet 88 mcg PO MOTUWETHFR THYROID 05/17/22 [History Last Taken 11/06/22] lisinopril 20 mg tablet 20 mg PO DAILY BLOOD PRESSURE #90 tabs 05/17/22 [Rx Last Taken 11/06/22] aspirin 81 mg tablet,delayed release (Adult Aspirin Regimen) 81 mg PO DAILY HEART HEALTH 06/25/22 [History Last Taken 11/06/22] acetaminophen 500 mg capsule 1,000 mg PO Q6H PRN pain 10/15/22 [History Last Taken Unknown] cholecalciferol (vitamin D3) 50 mcg (2,000 unit) capsule 50 mcg PO DAILY SUPPLEMENT 10/15/22 [History Last Taken 11/06/22] multivitamin (One Daily Multivitamin tablet) 1 tab PO DAILY HEALTH MAINTENANCE 10/15/22 [History Last Taken 11/06/22] Allergy/AdvReac Type Severity Reaction Status Date / Time ofloxacin Allergy Mild OTHER Verified 11/07/22 10:51 amlodipine Allergy Swelling Verified 11/07/22 10:51 apixaban [From Eliquis] Allergy SWELLING Verified 11/07/22 10:51 atenolol [From Tenormin] Allergy PT UNSURE Verified 11/07/22 10:51 OF REACTION Sulfa (Sulfonamide Allergy Other Verified 11/07/22 10:51 Antibiotics) brimonidine AdvReac Mild OTHER Verified 11/07/22 10:51 Family History Father Prostate cancer Grandmother Liver cancer Mother Hypertension Diabetes Brother Bladder cancer H/O heart surgery Other CAD (coronary artery disease) Heart disease Surgical History History of rectal surgery History of right oophorectomy History of tonsillectomy Social History household members: spouse housing: house Smoking Status: Never smoker alcohol intake: never substance use type: does not use caffeine: Yes Type: coffee and tea ROS ROS Narrative GENERAL: denies fever, chills, night sweats, weight loss, anorexia HEENT: denies headache, sinus congestion, or drainage, dysphagia RESPIRATORY: denies cough, sputum production, CARDIAC: Chest discomfort and palpitations, GASTROINTESTINAL: denies abdominal pain, nausea, vomiting, melena, GENITOURINARY: denies dysuria, urgency, frequency, heamaturia EXTREMITY: denies swelling MUSCULOSKELETAL: denies current joint pain or tenderness NEUROLOGIC: denies focal numbness, weakness, tingling HEMATOLOGIC: denies easy bruising and/or hemorrhage INTEGUMENT: denies rashes PSYCHIATRIC: denies suicidal or homicidal ideation Vital Signs Vital Signs Vital Signs: 11/07/22 10:45 11/07/22 11:08 11/07/22 11:50 Temperature 97.2 F L Temperature Source Temporal Pulse Rate 103 H Respiratory Rate 16 Respiratory Effort Normal Non-Labored Blood Pressure 201/133 H 180/102 H Blood Pressure Mean 155 128 Pulse Ox 96 Oxygen Delivery Method Room Air 11/07/22 12:35 Temperature Temperature Source Pulse Rate 85 Respiratory Rate 14 Respiratory Effort Blood Pressure 187/99 H Blood Pressure Mean 128 Pulse Ox 95 Oxygen Delivery Method Room Air Weight Weight: 59.421 kg Body Mass Index (BMI) 21.8 Physical Exam Narrative GENERAL: cooperative HEENT: Atraumatic; normocephalic EYES; Anicteric, Normal Conjunctiva NECK; supple, normal thyroid, RESPIRATORY: Diminished to auscultation CARDIOVASCULAR: Regular S1 S2, GI: soft, normoactive bowel sounds, : No Renal angle tenderness; EXTREMITIES: No edema, no clubbing, MUSCULOSKELETAL: no muscle wasting NEURO: Awake; no lateralizing signs. SKIN: No Rash PSYCH; Flat affect Results Lab / Micro Data 11/07/22 11:42 11/07/22 11:42 Labs: Laboratory Results - last 24 hr 11/07/22 11:42: WBC 6.8, RBC 4.44, Hgb 13.4, Hct 42.1, MCV 94.8, MCH 30.2, MCHC 31.8 L, RDW Std Deviation 48.8 H, RDW Coeff of Reinaldo 14.0, Plt Count 333, MPV 10.6, Immature Gran % (Auto) 0.400, Neut % (Auto) 69.3, Lymph % (Auto) 23.7, [place] % (Auto) 5.1, Eos % (Auto) 0.9, Baso % (Auto) 0.6, Absolute Neuts (auto) 4.7, Absolute Lymphs (auto) 1.62, Nucleated RBC % 0, Sodium 140, Potassium 2.9 L , Chloride 104, Carbon Dioxide 27.0, Anion Gap 9, BUN 16, Creatinine 0.86, Estim Creat Clear Calc 49.30, Est GFR (MDRD) Af Amer 83, Est GFR (MDRD) Non-Af 68, BUN/Creatinine Ratio 18.7, Glucose 119 H, Calcium 10.0, Troponin I High Sens 184 H* 11/07/22 11:50: Urine Color Yellow, Urine Clarity Clear, Urine pH 7.0, Ur Specific [place] 1.010, Urine Protein 15 H, Urine Glucose (UA) Normal, Urine Ketones 50 H, Urine Occult Blood 50 H, Urine Nitrite Negative, Urine Bilirubin Negative, Urine Urobilinogen Normal, Ur Leukocyte Esterase Negative, Urine RBC 0-5 SEEN, Urine WBC 0 SEEN, Ur Squamous Epith Cells 0 SEEN, Urine Bacteria 0 SEEN, Urine Mucus 0 SEEN Radiology Impression Chest X-Ray 11/07/22 12:03 IMPRESSION: No radiographic evidence of acute cardiopulmonary disease. Electronically Signed: Mary George MD at 12:30 EDT , Assessment & Plan Assessment/Plan (1) Essential hypertension: (2) Elevated troponin: PLAN: Plan Is a 77-year-old lady admitted with markedly elevated blood pressure 1. Acute hypertensive emergency ? Patient was scheduled to undergo cataract surgery which was discontinued sent to the ED found to have markedly elevated blood pressure as well as troponin. Admitted to monitored bed patient started on hydralazine metoprolol as well as Cardizem. As part of her management subsequent serial enzymes ordered in addition to 2D echo 2. Elevated troponin ? Acute coronary syndrome versus ACS. Subsequent serial enzymes and 2D echo ordered. Patient started on beta-blockers as well as aspirin. Patient to undergo a nuclear stress test in a.m. Case discussed with Dr. Henriquez with cardiology 3. Hypokalemia -Corrected per protocol 4. Paroxysmal A-fib ? Patient not to show on the diagnosis, telemetry monitoring in the ED did confirm A-fib. Patient is on Cardizem as well as metoprolol for rate control 5. Cataract ? Patient to undergo surgical removal once medically stable 6. History of previous CVA ? Echo apparently did demonstrate PFO vrs ASD patient is followed by cardiology as outpatient 7. Hypothyroidism - Patient is on levothyroxine home dose continued 8. GERD ? Patient is on PPI continue 9. History of rectal CA ? Currently remission following surgical intervention 10. History of cervical CA ? Currently remission 11. Degenerative joint disease ? Pain meds as needed 12. DVT prophylaxis ? TN Lovenox Time spent in the patient's overall evaluation,decision-making process, review of diagnostic data, adjustment of management, discussion with other providers, nursing nursing and ancillary staff involved in patient's care documentation, 75 Minutes Advance planning; did discuss with the patient and family regarding advanced directives as well as CODE STATUS. Did explain the various scenarios involved ( FULL CODE, DNR CCA, DNR CCA with no intubation, and DNR CC and what each meant) patient elected full code with CPR and intubation if needed. Order was placed. Time spent on discussion 18 minutes. Charges/Coding Visit Charges Inpatient E&M: 79103 Init Hosp L3 Procedures Hospitalists Procedures: 27143 Advncd Care Plan 30 Min
--- NOTE | 2022-11-07 12:56 | ECHOD_ITS ---
Reason For Study: HTN Procedure This was a 2D Doppler, Color Flow transthoracic echocardiogram. Exam performed portable in patient room. Left Ventricle Normal LV size. Left ventricular systolic function is normal. The estimated ejection fraction is 60 %. Stage 1 diastolic dysfunction. Right Ventricle Normal RV size. Normal systolic function. Atria The left and right atria are normal. Prominent eustachian valve. Hypermobile atrial septum. Mitral Valve The mitral valve is structurally normal. No prolapse or stenosis seen. Trivial mitral valve insufficiency. Tricuspid Valve Normal tricuspid valve. Trivial tricuspid valve insufficiency. Right ventricular systolic pressure estimated to be 22 mmHg. Aortic Valve Mild focal aortic valve calcification. Mild diffuse aortic valve thickening. Trisinus/trileaflet aortic valve. Aortic sclerosis, no stenosis. There is no aortic stenosis. Trivial aortic valve insufficiency. Pulmonic Valve Normal pulmonic valve. Trivial pulmonic valve insufficiency. Great Vessels Normal aortic root. Pericardium/Pleural No pericardial effusion. MMode/2D Measurements & Calculations LVIDd: 4.8 cm IVSd: 0.81 cm LVOT diam: 2.0 cm LVIDs: 2.5 cm LVPWd: 0.96 cm LVOT area: 3.2 cm2 RVDd: 2.7 cm FS: 49.0 % Ao root diam: 3.8 cm LAV(MOD-bp): 26.1 ml LVAd ap4: 20.8 cm2 LAV(MOD-bp) Indexed: 16.1 ml/m2 LVLd ap4: 6.6 cm LAV(MOD-sp2): 25.4 ml EDV(MOD-sp4): 53.3 ml LAV(MOD-sp4): 26.8 ml EDV(sp4-el): 55.5 ml LVAs ap4: 11.2 cm2 LVLs ap4: 5.2 cm ESV(MOD-sp4): 19.6 ml ESV(sp4-el): 20.2 ml EF(MOD-sp4): 63.3 % EF(sp4-el): 63.5 % SV(MOD-sp4): 33.8 ml SV(sp4-el): 35.3 ml LA A4 area: 11.8 cm2 LA dimension(2D): 2.8 cm RA A4 area: 12.8 cm2 Time Measurements MV dec time: 0.09 sec Doppler Measurements & Calculations MV E max mango: 54.5 cm/sec Lat Peak E' Mango: 10.7 cm/sec Med Peak E' Mango: 4.5 cm/sec MV A max mango: 93.2 cm/sec E/E' lat: 5.1 E/E' med: 12.0 MV E/A: 0.58 Ao V2 max: 185.6 cm/sec LV V1 max: 86.2 cm/sec MV dec slope: 574.5 cm/sec2 Ao max P.8 mmHg LV V1 max P.0 mmHg Ao V2 mean: 143.9 cm/sec LV V1 mean P.7 mmHg Ao mean P.8 mmHg LV V1 mean: 63.0 cm/sec Ao V2 VTI: 36.4 cm LV V1 VTI: 18.0 cm AV (velocity ratio): 0.49 LISA(I,D): 1.6 cm2 LISA(V,D): 1.5 cm2 SV(LVOT): 58.1 ml PA V2 max: 84.7 cm/sec TR max mango: 215.7 cm/sec TR max P.6 mmHg ECHO/Echo Complete Interpretation Summary The estimated ejection fraction is 60 %. Mild focal aortic valve calcification. Aortic sclerosis, no stenosis. Stage 1 diastolic dysfunction. Compared to prior study, there is no significant change. Ordering Physician: Brandon Martínez Referring Physician: Alisia Goode Performed By: Lisa De Paz RDCS, RVT
[2022-11-07] MEDS: Potassium Chloride Oral Tablet 20 MEQ 40 MEQ PO (13:05)
[2022-11-07] MEDS: Aspirin 81 MG TAB.CHEW 324 MG PO (13:05)
[2022-11-07 13:10] LABS: Magnesium 2.1 mg/dL (1.6-2.6)
[2022-11-07 13:46] LABS: Reflex Troponin-HS? (from REC) Y
[2022-11-07 14:21] LABS: Troponin-I HS 197 pg/mL (3.0-54.0)
[2022-11-07] MEDS: Metoprolol Tartrate 50 MG Tablet PO ×2 (15:17→23:40)
[2022-11-07] MEDS: hydrALAZINE 25 MG Tablet PO (15:18)
[2022-11-07] MEDS: dilTIAZem CD 120 MG Capsule PO ×2 (15:18→22:22)
[2022-11-07 18:14] LABS: Troponin-I HS 179 pg/mL (3.0-54.0)
[2022-11-08] VITALS (7 sets, daily range): BP systolic 135–159; BP diastolic 73–100; PULSE 53–62; RESP 16–18; TEMP 36.6–36.9; O2SAT 97–98
--- NOTE | 2022-11-08 03:35 | NURSING ---
Pt is refusing to do stress test in the morning. She states that when she visited Dr. Oseguera's office in June, per pt, she was told that stress test was not necessary and that the echocardiogram that she had done at that time was the only thing she needed. This RN informed pt that her troponin levels came back high and that is why the MD ordered the stress test to further assess her heart. Pt provided w/ teaching materials about stress test and why it is necessary to do it this admission. However, pt insists that her Analytical Laboratory Technician told her back in June that she did not need to do a stress test and states she will not do it right now because she wants to check in with her Analytical Laboratory Technician first to see if it's safe for her. This RN advised pt to speak w/ MD in the morning about her decision, and pt agrees. No further concerns at this time.
[2022-11-08] MEDS: Acetaminophen 325 MG Tablet 650 MG PO ×2 (03:58→10:49)
[2022-11-08 05:46] LABS: Absolute Neutrophil Count 3.1 X10^3/uL (2.0-7.7); Basophil# 0.05 X10^3/uL; Basophil% 0.9 % (0-1); Eosinophils% 1.7 % (0-5); Hematocrit 37.1 % (37-47); Hemoglobin 12.3 g/dL (12.0-15.0); Lymphocyte % 36.1 % (19-41); Mean Corp Hgb Conc 33.2 g/dL (32-36); Mean Corpuscular Hgb 30.9 pg (27.0-32.0); Mean Corpuscular Volume 93.2 fL (81-99); Mean Platelet Vol. 9.9 fl (6.2-12.0); Monocyte# 0.47 X10^3/uL; Monocyte% 8.1 % (0-10); NRBC Flagged by Analyzer 0 % (0-5); Neutrophil # 3.08 X10^3/uL (2.7-7.7); Platelet Count 293 K/mm3 (150-450); RBC Distribution Width CV 14.3 % (11.6-14.6); RBC Distribution Width SD 49.5 fl (35.1-43.9); Red Blood Count 3.98 M/mm3 (4.2-5.4); White Blood Count 5.8 K/mm3 (4.4-11.0)
[2022-11-08 06:16] LABS: Anion Gap 8 (5-15); BUN 20 mg/dL (7-18); BUN/Creat Ratio 25.3 RATIO (10-20); Calcium,Total 9.2 mg/dL (8.5-10.1); Chloride 109 mmol/L (98-107); Creatinine, Serum 0.79 mg/dL (0.55-1.02); EST Glomerular Filtration Rate 75 mL/min (>60); Est Glom Filt Rate - Afr Amer 91 mL/min (>60); Estimated Creatinine Clearance 40.68 ml/min; Glucose 105 mg/dL (74-106); Potassium 3.8 mmol/L (3.5-5.1); Sodium Level 141 mmol/L (136-145)
[2022-11-08] MEDS: hydrALAZINE 25 MG Tablet PO ×2 (06:28→14:35)
[2022-11-08] MEDS: 0.9% Saline Lock 10 ML Syringe IV ×2 (06:30→10:50)
--- NOTE | 2022-11-08 08:17 | PN.HOSP_ITS ---
Reason for Visit Reason for Visit: Diagnoses Essential (primary) hypertension (11/07/22) Other specified abnormalities of plasma proteins (11/07/22) Subjective Subjective Patient seen blood pressure control improved. Plans for patient to undergo subsequent evaluation with a nuclear stress test. Patient was initially reluctant to proceed with a stress test managed to convince her to rescind his decision Objective Data Objective Data Vital Signs: Vital Signs Temp Pulse Resp BP Pulse Ox O2 Del Method 97.8 F 53 L 18 135/100 H 97 Room Air 11/08/22 06:24 11/08/22 06:28 11/08/22 06:24 11/08/22 06:28 11/08/22 06:24 11/08/22 06:24 Oxygen Delivery Method Room Air Weight: 59.4 kg Body Mass Index (BMI) 21.8 Lab / Micro Data 11/08/22 05:25 11/08/22 05:25 Labs: Laboratory Results - last 24 hr 11/07/22 11:42: WBC 6.8, RBC 4.44, Hgb 13.4, Hct 42.1, MCV 94.8, MCH 30.2, MCHC 31.8 L, RDW Std Deviation 48.8 H, RDW Coeff of Reinaldo 14.0, Plt Count 333, MPV 10.6, Immature Gran % (Auto) 0.400, Neut % (Auto) 69.3, Lymph % (Auto) 23.7, [place] % (Auto) 5.1, Eos % (Auto) 0.9, Baso % (Auto) 0.6, Absolute Neuts (auto) 4.7, Absolute Lymphs (auto) 1.62, Nucleated RBC % 0, Sodium 140, Potassium 2.9 L , Chloride 104, Carbon Dioxide 27.0, Anion Gap 9, BUN 16, Creatinine 0.86, Estim Creat Clear Calc 49.30, Est GFR (MDRD) Af Amer 83, Est GFR (MDRD) Non-Af 68, BUN/Creatinine Ratio 18.7, Glucose 119 H, Calcium 10.0, Magnesium 2.1, Troponin I High Sens 184 H* 11/07/22 11:50: Urine Color Yellow, Urine Clarity Clear, Urine pH 7.0, Ur Specific Joy 1.010, Urine Protein 15 H, Urine Glucose (UA) Normal, Urine Ketones 50 H, Urine Occult Blood 50 H, Urine Nitrite Negative, Urine Bilirubin Negative, Urine Urobilinogen Normal, Ur Leukocyte Esterase Negative, Urine RBC 0-5 SEEN, Urine WBC 0 SEEN, Ur Squamous Epith Cells 0 SEEN, Urine Bacteria 0 SEEN, Urine Mucus 0 SEEN 11/07/22 13:50: Troponin I High Sens 197 H* 11/07/22 17:28: Troponin I High Sens 179 H* 11/08/22 05:25: WBC 5.8, RBC 3.98 L, Hgb 12.3, Hct 37.1, MCV 93.2, MCH 30.9, MCHC 33.2, RDW Std Deviation 49.5 H, RDW Coeff of Reinaldo 14.3, Plt Count 293, MPV 9.9, Immature Gran % (Auto) 0.200, Neut % (Auto) 53.0, Lymph % (Auto) 36.1, [place] % (Auto) 8.1, Eos % (Auto) 1.7, Baso % (Auto) 0.9, Absolute Neuts (auto) 3.1, Absolute Lymphs (auto) 2.10, Nucleated RBC % 0, Sodium 141, Potassium 3.8, Chloride 109 H, Carbon Dioxide 24.0, Anion Gap 8, BUN 20 H, Creatinine 0.79, Estim Creat Clear Calc 40.68, Est GFR (MDRD) Af Amer 91, Est GFR (MDRD) Non-Af 75, BUN/Creatinine Ratio 25.3 H, Glucose 105, Calcium 9.2 Radiography Diagnostic Testing: Radiology Impression Chest X-Ray 11/07/22 12:03 IMPRESSION: No radiographic evidence of acute cardiopulmonary disease. Electronically Signed: Mary George MD at 12:30 EDT , Physical Exam Narrative GENERAL: cooperative HEENT: Atraumatic; normocephalic EYES; Anicteric, Normal Conjunctiva NECK; supple, normal thyroid, RESPIRATORY: Diminished to auscultation CARDIOVASCULAR: Regular S1 S2, GI: soft, normoactive bowel sounds, : No Renal angle tenderness; EXTREMITIES: No edema, no clubbing, MUSCULOSKELETAL: no muscle wasting NEURO: Awake; no lateralizing signs. SKIN: No Rash PSYCH; Flat affect Assessment & Plan Assessment/Plan (1) Essential hypertension: (2) Elevated troponin: PLAN: Plan Is a 77-year-old lady admitted with markedly elevated blood pressure 1. Acute hypertensive emergency ? Patient was scheduled to undergo cataract surgery which was discontinued sent to the ED found to have markedly elevated blood pressure as well as troponin. Admitted to monitored bed patient started on hydralazine metoprolol as well as Cardizem. As part of her management subsequent serial enzymes ordered in addition to 2D echo ? 11/08/2022; 2D echo performed the day prior results pending 2. Elevated troponin ? Acute coronary syndrome versus ACS. Subsequent serial enzymes and 2D echo ordered. Patient started on beta-blockers as well as aspirin. Patient to undergo a nuclear stress test in a.m. Case discussed with Dr. Henriquez with cardiology ? 11/08/2022 nuclear stress test ordered 3. Hypokalemia -Corrected per protocol 4. Paroxysmal A-fib ? Patient not to show on the diagnosis, telemetry monitoring in the ED did confirm A-fib. Patient is on Cardizem as well as metoprolol for rate control 5. Cataract ? Patient to undergo surgical removal once medically stable 6. History of previous CVA ? Echo apparently did demonstrate PFO vrs ASD patient is followed by cardiology as outpatient 7. Hypothyroidism - Patient is on levothyroxine home dose continued 8. GERD ? Patient is on PPI continue 9. History of rectal CA ? Currently remission following surgical intervention 10. History of cervical CA ? Currently remission 11. Degenerative joint disease ? Pain meds as needed 12. DVT prophylaxis ? SC Lovenox Time spent in the patient's overall evaluation,decision-making process, review of diagnostic data, adjustment of management, discussion with other providers, nursing nursing and ancillary staff involved in patient's care documentation, 35 Minutes Charges/Coding Visit Charges Inpatient E&M: 84962 Subs Hosp L2
[2022-11-08] MEDS: dilTIAZem CD 120 MG Capsule PO (10:50)
--- NOTE | 2022-11-08 12:59 | STRESSREP ---
Stress Test Report Date: 11/08/2022 Procedure: Pharmacologic stress nuclear imaging study Indications: Chest pain Consent: Per the patient Procedure: The patient underwent pharmacologic (Regadenoson 0.4mg ) evaluation with a peak heart rate of 91 beats per minute (63%predicted maximal heart rate) and a peak blood pressure of 168/88 mmHg. The baseline ECG demonstrated sinus rhythm. The peak pharmacologic ECG demonstrated no ischemic change. Rare PVC noted with infusion. First-degree AV block noted with Lexiscan infusion that resolved. There was no complaint of chest discomfort during pharmacologic infusion or recovery. The patient was injected with 11.7 millicuries of technetium 99m Cardiolite and subsequently rest SPECT Cardiolite nuclear imaging was obtained in the horizontal long, vertical long, and short axis views. The patient underwent pharmacologic (Regadenoson) evaluation. The patient was injected with 34.4 millicuries of technetium 99m Cardiolite and subsequently stress SPECT Cardiolite nuclear imaging was obtained in the horizontal long, vertical long, and short axis views. A gated Cardiolite study at peak stress was obtained. The examination was stopped secondary to completion of protocol. Rest and stress SPECT Cardiolite nuclear imaging status post realignment, normalization, and attenuation correction demonstrate no fixed or reversible perfusion defects. There is end systolic thickening and brightening. The gated Cardiolite study demonstrates myocardial thickening and inward wall motion. The reported LVEF is 80%. Impression: 1. Pharmacologic (Regadenoson) evaluation 2. Peak pharmacologic ECG with no ischemic change. 3. Rare PVC noted. 5. No reversible ischemia noted.. 6. The gated Cardiolite study reports an LVEF of 80%. This note was generated with [employer] software. It may contain incorrect words, spelling, and punctuation that were not noted in checking the note before signing.
[2022-11-08] MEDS: Ondansetron 4 MG/2 ML Vial IV (13:23)
[2022-11-08] MEDS: Cholecalciferol (VIT D3) 25 MCG TABLET (1,000 UNITS) 50 MCG PO (14:31)
[2022-11-08] MEDS: Pantoprazole Sodium 40 MG Tablet PO (14:33)
[2022-11-08] MEDS: Lisinopril 20 MG Tablet PO (14:33)
[2022-11-08] MEDS: Multivitamins,Therapeutic Tablet 1 TABLET PO (14:33)
--- NOTE | 2022-11-08 14:56 | PCM.DC.SUM ---
Providers Date of Admission: 11/07/22 Date of Discharge: 11/08/22 Primary Care Physician: Alisia Goode, CATRACHITA-C Reason For Visit: ESSENTIAL HYPERTENSION Diagnosis Discharge Diagnosis (1) Essential hypertension: Status: Chronic Code(s): I10 - Essential (primary) hypertension (2) Elevated troponin: Status: Acute Code(s): R77.8 - Other specified abnormalities of plasma proteins Plan Is a 77-year-old lady admitted with markedly elevated blood pressure 1. Acute hypertensive emergency ? Patient was scheduled to undergo cataract surgery which was discontinued sent to the ED found to have markedly elevated blood pressure as well as troponin. Admitted to monitored bed patient started on hydralazine metoprolol as well as Cardizem. As part of her management subsequent serial enzymes ordered in addition to 2D echo ? 11/08/2022; 2D echo performed the day prior results pending ?2D echo demonstrated ejection fraction 60 %. Mild focal aortic valve calcification.Aortic sclerosis, no stenosis. Stage 1 diastolic dysfunction. Compared to prior study, there is no significant change. -Patient was written for lisinopril and hydralazine on discharge. Lisinopril was increased from 20 daily to 20 mg twice daily and hydralazine 25 mg 3 times daily. Patient was not discharged on Cardizem and metoprolol due to episodic bradycardia 2. Elevated troponin ? Acute coronary syndrome versus ACS. Subsequent serial enzymes and 2D echo ordered. Patient started on beta-blockers as well as aspirin. Patient to undergo a nuclear stress test in a.m. Case discussed with Dr. Henriquez with cardiology ? 11/08/2022 nuclear stress test ordered ? Patient nuclear stress test was negative for stress-induced ischemia. Her elevated troponin attributed to have markedly elevated blood pressure on admission 3. Hypokalemia -Corrected per protocol 4. Paroxysmal A-fib ? Patient not to show on the diagnosis, telemetry monitoring in the ED did confirm A-fib. Patient is on Cardizem as well as metoprolol for rate control 5. Cataract ? Patient to undergo surgical removal once medically stable 6. History of previous CVA ? Echo apparently did demonstrate PFO vrs ASD patient is followed by cardiology as outpatient 7. Hypothyroidism - Patient is on levothyroxine home dose continued 8. GERD ? Patient is on PPI continue 9. History of rectal CA ? Currently remission following surgical intervention 10. History of cervical CA ? Currently remission 11. Degenerative joint disease ? Pain meds as needed 12. DVT prophylaxis ? SC Lovenox Time spent in the patient's overall evaluation,decision-making process, review of diagnostic data, adjustment of management, discussion with other providers, nursing nursing and ancillary staff involved in patient's care documentation, 35 Minutes Medications at Discharge Home Medications pantoprazole 40 mg tablet,delayed release 40 mg PO DAILY ACID REFLUX 07/01/17 bimatoprost 0.01 % eye drops (Lumigan) 1 drp EACH EYE DAILY GLAUCOMA 04/22/22 levothyroxine 88 mcg tablet 88 mcg PO MOTUWETHFR THYROID 05/17/22 aspirin 81 mg tablet,delayed release (Adult Aspirin Regimen) 81 mg PO DAILY HEART HEALTH 06/25/22 acetaminophen 500 mg capsule 1,000 mg PO Q6H PRN pain 10/15/22 cholecalciferol (vitamin D3) 50 mcg (2,000 unit) capsule 50 mcg PO DAILY SUPPLEMENT 10/15/22 multivitamin (One Daily Multivitamin tablet) 1 tab PO DAILY HEALTH MAINTENANCE 10/15/22 chlorpheniramine maleate 4 mg tablet (Allergy (chlorpheniramine)) 4 mg PO Q8H PRN allergy 11/08/22 hydralazine 25 mg tablet 25 mg PO TID #90 tabs 11/08/22 lisinopril 20 mg tablet 20 mg PO BID BLOOD PRESSURE #60 tabs 11/08/22 Hospital Course Summary of Care Provided Minutes Spent on Discharge: 35 Physical Exam Narrative GENERAL: cooperative HEENT: Atraumatic; normocephalic EYES; Anicteric, Normal Conjunctiva NECK; supple, normal thyroid, RESPIRATORY: Diminished to auscultation CARDIOVASCULAR: Regular S1 S2, GI: soft, normoactive bowel sounds, : No Renal angle tenderness; EXTREMITIES: No edema, no clubbing, MUSCULOSKELETAL: no muscle wasting NEURO: Awake; no lateralizing signs. SKIN: No Rash PSYCH; Flat affect Weight / BMI Weight Weight: 59.4 kg Body Mass Index (BMI) 21.8 ABG / Lab / Microbiology Data 11/08/22 05:25 11/08/22 05:25 Laboratory: Laboratory Results - last 24 hr 11/07/22 17:28: Troponin I High Sens 179 H* 11/08/22 05:25: WBC 5.8, RBC 3.98 L, Hgb 12.3, Hct 37.1, MCV 93.2, MCH 30.9, MCHC 33.2, RDW Std Deviation 49.5 H, RDW Coeff of Reinaldo 14.3, Plt Count 293, MPV 9.9, Immature Gran % (Auto) 0.200, Neut % (Auto) 53.0, Lymph % (Auto) 36.1, [place] % (Auto) 8.1, Eos % (Auto) 1.7, Baso % (Auto) 0.9, Absolute Neuts (auto) 3.1, Absolute Lymphs (auto) 2.10, Nucleated RBC % 0, Sodium 141, Potassium 3.8, Chloride 109 H, Carbon Dioxide 24.0, Anion Gap 8, BUN 20 H, Creatinine 0.79, Estim Creat Clear Calc 40.68, Est GFR (MDRD) Af Amer 91, Est GFR (MDRD) Non-Af 75, BUN/Creatinine Ratio 25.3 H, Glucose 105, Calcium 9.2 Radiography Diagnostic Testing: Radiology Impression Echocardiogram 11/07/22 12:56 Interpretation Summary The estimated ejection fraction is 60 %. Mild focal aortic valve calcification. Aortic sclerosis, no stenosis. Stage 1 diastolic dysfunction. Compared to prior study, there is no significant change. Ordering Physician: Brandon Martínez Referring Physician: Alisia Goode Performed By: Lisa De Paz RDCS, RVT D/C Instructions Discharge Diet: 2000 mg Sodium Diet Meaningful Use Info Meaningful Use Diagnoses (Choose all that apply): None applicable Discharge Plan Admission Admit Date/Time: 11/07/22 12:45 Attending Provider: Brandon Martínez Primary Care Provider: Alisia Goode Discharge Orders/Prescriptions Prescriptions: New hydralazine 25 mg Tablet 25 mg PO TID Qty: 90 0RF Continued levothyroxine 88 mcg tablet 88 mcg PO MOTUWETHFR cholecalciferol (vitamin D3) 50 mcg (2,000 unit) capsule 50 mcg PO DAILY multivitamin [One Daily Multivitamin] Tablet 1 tab PO DAILY acetaminophen 500 mg capsule 1,000 mg PO Q6H PRN (Reason: pain) pantoprazole 40 MG tablet 40 mg PO DAILY Lumigan 0.01 % Drops 1 drp EACH EYE DAILY chlorpheniramine maleate [Allergy (chlorpheniramine)] 4 mg tablet 4 mg PO Q8H PRN (Reason: allergy) Rx Instructions: do not exceed 2 doses per 24 hrs aspirin [Adult Aspirin Regimen] 81 mg tablet,delayed release (DR/EC) 81 mg PO DAILY Changed lisinopril 20 mg tablet 20 mg PO BID Qty: 60 0RF Referrals / Follow Up: Alisia Goode, CURRICULUM DEVELOPER-C [Primary Care Provider] - Within 1 Week Disposition Disposition (needs filled in before D/C Order can be placed): Home, Self Care Charges/Coding Visit Charges Inpatient E&M: 75425 Disch Hosp >30min
--- NOTE | 2022-11-08 15:11 | CASEMGMT ---
Met with patient to complete FLOWERS form. FLOWERS form explained to patient who voiced understanding and signed form. Original form placed in pt?s chart and copy provided to patient. Ena Hubbard, Discharge Planning Asst.?
--- NOTE | 2022-11-08 15:21 | CASEMGMT ---
Patient has order for discharge. RN CM in to discuss need with patient, family at bedside. Patient denies needs at discharge. Patient had no further questions or concerns.
--- NOTE | 2022-11-08 16:32 | PHA.DC.MC.R ---
Pharmacy [facility] has performed discharge medication reconciliation and counseling for this patient. The patient was counseled on the following discharge medications and changes in medications for homegoing were reviewed. 1. HYDRALAZINE 2. LISINOPRIL --> DOSE CHANGE The Reason for Use, instructions for use, and potential side effects were reviewed for all new medications. The patient's questions regarding all of their medications were answered. The patient was able to verbally demonstrate an understanding of their discharge medications. The patient's discharge medication list was reviewed for discrepancies and discrepancies were resolved. The patient was counselled by Kathrin Wei, [place]ha candidate Medications at Discharge Home Medications pantoprazole 40 mg tablet,delayed release 40 mg PO DAILY ACID REFLUX 07/01/17 bimatoprost 0.01 % eye drops (Lumigan) 1 drp EACH EYE DAILY GLAUCOMA 04/22/22 levothyroxine 88 mcg tablet 88 mcg PO MOTUWETHFR THYROID 05/17/22 aspirin 81 mg tablet,delayed release (Adult Aspirin Regimen) 81 mg PO DAILY HEART HEALTH 06/25/22 acetaminophen 500 mg capsule 1,000 mg PO Q6H PRN pain 10/15/22 cholecalciferol (vitamin D3) 50 mcg (2,000 unit) capsule 50 mcg PO DAILY SUPPLEMENT 10/15/22 multivitamin (One Daily Multivitamin tablet) 1 tab PO DAILY HEALTH MAINTENANCE 10/15/22 chlorpheniramine maleate 4 mg tablet (Allergy (chlorpheniramine)) 4 mg PO Q8H PRN allergy 11/08/22 hydralazine 25 mg tablet 25 mg PO TID #90 tabs 11/08/22 lisinopril 20 mg tablet 20 mg PO BID BLOOD PRESSURE #60 tabs 11/08/22
== END 2022-11-08 14:56 | disposition home or self-care (01) ==
LOC: ED 13:07 → PCU 13:08
PROVIDERS: Admitting Provider Internal Medicine; Emergency Provider Emergency Medicine; PCP Nurse Practitioner Family; Visit Provider Internal Medicine
DX: I16.1 Hypertensive emergency (principal); I48.0 Paroxysmal atrial fibrillation; I10 Essential (primary) hypertension; E87.6 Hypokalemia; Z86.16 Personal history of COVID-19; Z79.82 Long term (current) use of aspirin; Z79.2 Long term (current) use of antibiotics; R77.8 Other specified abnormalities of plasma proteins; I44.0 Atrioventricular block, first degree; I49.3 Ventricular premature depolarization; E03.9 Hypothyroidism, unspecified; Z79.899 Other long term (current) drug therapy; Z79.890 Hormone replacement therapy; M79.7 Fibromyalgia; Z86.73 Personal history of transient ischemic attack (TIA), and cerebral infarction without residual deficits; K21.9 Gastro-esophageal reflux disease without esophagitis; H26.9 Unspecified cataract; I08.3 Combined rheumatic disorders of mitral, aortic and tricuspid valves; R94.31 Abnormal electrocardiogram [ECG] [EKG]
CPT/HCPCS: 36415; 71046; 78452; 80048; 81001; 83735; 84484; 85025; 93005; 93017; 93306; 96374; 96375; 96376; 99221; 99285; A9500; A4216; G0378; J2405

== ENCOUNTER → 2022-11-28 | Outpatient (CLI) | payer MEDICARE, SELFPAY ==
[2022-11-28 16:15] LABS: ALB/GLOB Ratio 1.2 RATIO (0.9-2.4); AST(SGOT) 15 U/L (15-37); Alanine Aminotransfer ALT/SGPT 16 U/L (13-56); Albumin, Serum 4.3 g/dL (3.2-5.0); Alkaline Phosphatase 81 U/L (45-117); Anion Gap 6 (5-15); BUN 20 mg/dL (7-18); BUN/Creat Ratio 21.8 RATIO (10-20); Calcium,Total 9.5 mg/dL (8.5-10.1); Chloride 100 mmol/L (98-107); Creatinine, Serum 0.92 mg/dL (0.55-1.02); EST Glomerular Filtration Rate 63 mL/min (>60); Est Glom Filt Rate - Afr Amer 76 mL/min (>60); Globulin 3.6 g/dL (2.2-4.2); Glucose 109 mg/dL (74-106); Potassium 3.5 mmol/L (3.5-5.1); Protein, Total 7.9 g/dL (6.4-8.2); Sodium Level 140 mmol/L (136-145)
== END | disposition home or self-care (01) ==
LOC: LABSPEC 15:11
PROVIDERS: PCP Nurse Practitioner Family; Referring Provider Internal Medicine; Visit Provider Internal Medicine
DX: E87.6 Hypokalemia (principal)
CPT/HCPCS: 80053

== ENCOUNTER 2023-12-22 10:45 | Inpatient (IN) | payer MEDICARE, SELFPAY ==
[2023-12-22 10:33] VITALS: BMI 22.8
[2023-12-22 11:02] VITALS: O2SAT 96
--- NOTE | 2023-12-22 11:13 | HP.PCM.HOS_ITS ---
HPI - General General Date of Admission: 12/22/23 Date of Service: 12/22/23 Chief Complaint: Palpitation. BP high. Woke up not feeling well with headache and congestion. HPI Narrative NANI HARDIN, is a 78 F is being admitted directly from [facility] for further evaluation of palpitation and some shortness of breath. Patient stated that she woke up not feeling well with headache and congestion. She has history of allergy and felt mild periorbital swelling, redness person that has resolved now. Palpitation at 1900 hrs. on 12/21/2023. Mild shortness of breath but denies chest pain. She states she has a A-fib She denies fever or chills. She denies history of CAD or CHF. She states she has paroxysmal A-fib and most of the time she is in normal sinus rhythm. Follows with Dr. Oseguera and Jason Raines NP [facility] Medical History Hiatal hernia Essential hypertension History of cervical cancer Vitamin B12 deficiency Hypokalemia Anxiety and depression Polyneuropathy Neuropathy Post-COVID chronic fatigue Cataract Glaucoma Hearing loss Diverticulosis Colon polyp Hepatic cyst Gall bladder polyp Left elbow pain Degenerative scoliosis in adult patient Scoliosis Thoracic radiculopathy due to osteoarthritis of spine Degeneration, intervertebral disc, cervical Neck pain Low back pain Fibromyalgia Osteoporosis Female bladder prolapse Cystocele with prolapse Patent foramen ovale Bicuspid aortic valve Epigastric pain Abdominal pain Paresthesia Leg cramps Balance disorder Fatigue Lymphadenopathy, cervical Abnormal MRI of head Abnormal bone density screening Postmenopausal History of rectal cancer COVID-19 1st degree AV block Ovary absent Irritable bowel disease MVP (mitral valve prolapse) Ulcerative colitis Anal cancer GERD (gastroesophageal reflux disease) Vitamin D deficiency Hypothyroidism PAF (paroxysmal atrial fibrillation) Home Medications ?Medication ?Instructions ?Recorded ?Last Taken ?Type pantoprazole 40 mg tablet,delayed 40 mg PO DAILY ACID REFLUX 07/01/17 12/21/23 History release levothyroxine 88 mcg tablet 88 mcg PO MOTUWETHFR THYROID 05/17/22 12/22/23 History aspirin 81 mg tablet,delayed 81 mg PO DAILY HEART HEALTH 06/25/22 12/22/23 History release (Adult Aspirin Regimen) acetaminophen 500 mg capsule 1,000 mg PO Q6H PRN pain 10/15/22 Unknown History cholecalciferol (vitamin D3) 50 50 mcg PO DAILY SUPPLEMENT 10/15/22 12/21/23 History mcg (2,000 unit) capsule multivitamin (One Daily 1 tab PO DAILY HEALTH MAINTENANCE 10/15/22 12/21/23 History Multivitamin tablet) chlorpheniramine maleate 4 mg 4 mg PO Q8H PRN allergy 11/08/22 12/21/23 History tablet (Allergy (chlorpheniramine)) magnesium 250 mg tablet 250 mg PO DAILY PRN supplement 07/30/23 12/22/23 History carvedilol 6.25 mg tablet 6.25 mg PO BID heart #180 tabs 11/14/23 12/22/23 Rx hydrochlorothiazide 25 mg tablet 25 mg PO DAILY water pill #90 tabs 11/14/23 12/21/23 02:00 Rx 25 mg potassium chloride 20 mEq 20 meq PO DAILY supplement 12/22/23 12/22/23 History tablet,extended release Allergy/AdvReac Type Severity Reaction Status Date / Time ofloxacin Allergy Mild OTHER Verified 07/30/23 14:32 amlodipine Allergy Swelling Verified 07/30/23 14:32 apixaban (From Eliquis) Allergy SWELLING Verified 07/30/23 14:32 atenolol (From Tenormin) Allergy PT UNSURE Verified 07/30/23 14:32 OF REACTION lisinopril Allergy Lip Verified 07/30/23 14:32 swelling Sulfa (Sulfonamide Allergy Other Verified 07/30/23 14:32 Antibiotics) brimonidine AdvReac Mild OTHER Verified 07/30/23 14:32 Family History Father Prostate cancer Grandmother Liver cancer Mother Hypertension Diabetes Brother Bladder cancer H/O heart surgery Other CAD (coronary artery disease) Heart disease Surgical History S/P bilateral cataract extraction History of tonsillectomy History of rectal surgery History of right oophorectomy Social History household members: spouse housing: house Smoking Status: Never smoker alcohol intake: never substance use type: does not use caffeine: Yes Type: coffee and tea ROS ROS Narrative Constitutional: Reports fatigue and weakness. No fever. HEENT: Reports systems reviewed and no addt'l complaints, except as documented Respiratory/Chest: No acute shortness of breath or respiratory distress or wheezing. CVS: As described Gastrointestinal: History of anal cancer status post radiochemotherapy. Chronic intermittent fecal incontinence closely when she has diarrhea. Denies coffee ground emesis, hematemesis or vomiting Genitourinary: Denies burning urination or new urinary tract symptoms. Mild cystocele Musculoskeletal: Denies acute joint pain or limited range of motion. No acute injury Neurologic: Denies seizure-like symptoms. skin: No ulcer. No rash. History of multiple allergies Endocrinology: Reports systems reviewed and no addt'l complaints, except as documented Hematologic/Lymphatic: Reports systems reviewed and no addt'l complaints, except as documented Rest 14 ROS are negative except as mentioned in HPI Vital Signs Vital Signs Vital Signs: Weight Weight: 136 lb 14.513 oz Body Mass Index (BMI) 22.8 Physical Exam Narrative General: Alert, Oriented x3, Cooperative HEENT: Atraumatic, PERRLA, EOMI, Normocephalic Oral: Oral mucosa moist. No Gingival or Mucosal Lesions/ Ulcerations Neck: Supple, No JVD, Negative Carotid Bruits Chest wall/Lungs: Air entry equal in bilateral lung bases. No crepitation/rhonchi Cardiovascular: Sinus rhythm, Normal S1, Normal S2, systolic murmur. Abdomen: Bowel Sounds Present, Soft, Non Tender, Non-Distended : No dysuria. No renal angle tenderness. No suprapubic tenderness. Extremities: No edema, Capillary Refill Less than 3 Seconds Skin: No rashes, No breakdown Musculoskeletal: No Tenderness to Palpation of Joints or Extremities. ROM full and intact Neurological: Cranial nerves II-XII grossly intact, DTR 2+/4. No acute focal neurological deficit. Psych/Mental Status: Normal Affect, Appropriate. Assessment & Plan Assessment/Plan (1) PAF (paroxysmal atrial fibrillation): PLAN: Plan This 70-year-old female is being admitted from [facility] ED for further evaluation of palpitation and elevated blood pressure. 1. Paroxysmal A-fib, heart rate not well-controlled: Patient is directly admitted from pulmonary in ED. Her heart rate was in 90s. Blood pressure was in systolic 160s. She showed me the handwritten note. quality assurance monitor body shows sinus rhythm at 74 bpm. Twelve-lead EKG ordered. On carvedilol 6.25 mg twice daily. She stated she had allergic reaction swelling and redness after taking Eliquis. She stated she also could not take Coumadin. She she states she is mostly in sinus rhythm therefore does not want to try any other blood thinner. TSH ordered for tomorrow AM She had echo in October 2023 reported EF 60%, stage I diastolic dysfunction. Trivial TR. Trivial MR. She states she has Bevitamel prolapse but does not reported in the echo 2. Elevated troponin: High sensitive troponin 9 pulmonary was 908 and 831. TSH 1.21. Serial cardiac enzymes ordered. Denies history of CAD. Repeat EKG ordered . She had a pharmacological nuclear stress test in October 2022 which was reported no reversible ischemia. Rare PVC. Gated LVEF 80% 3. Hypertension: Blood pressure not well-controlled. Monitor BP. On HCTZ 25 mg daily. Mild hypokalemia, potassium getting replaced. Continue potassium supplement 4. History of anal cancer: No acute issues. Brain remission. Patient had chemoradiation. 5. Other comorbidities GERD and seasonal allergies: No acute issues. Home medication reconciliation done. Living will/advanced directive/end of life care: Patient does not have living will or advanced directive. Her daughter is the power of real estate associate attorney for health after discussion of benefits/risks procedures involved with full code, DNR CC arrest and DNR CC, the patient opted for full code. Patient does want artificial life support including intubation, tube feed, ventilator and/chest compression, central venous catheter, vasopressor and DC shock if needed Total time spent in [id number] encounter in discussion of advanced directive 17 minutes. Echo in October 2019 Interpretation Summary The estimated ejection fraction is 60 %. Mild focal aortic valve calcification. Aortic sclerosis, no stenosis. Stage 1 diastolic dysfunction. Compared to prior study, there is no significant change. Charges/Coding Visit Charges Inpatient E&M: 31002 Init Hosp L3 Procedures Hospitalists Procedures: 23040 Advncd Care Plan 30 Min
--- NOTE | 2023-12-22 11:46 | EKG12_ITS ---
Test Reason : Blood Pressure : / mmHG Vent. Rate : 080 BPM Atrial Rate : 080 BPM P-R Int : 266 ms QRS Dur : 088 ms QT Int : 410 ms P-R-T Axes : 077 -29 087 degrees QTc Int : 472 ms Sinus rhythm with 1st degree A-V block with Premature atrial complexes Septal infarct (cited on or before 01-JUL-2017) Abnormal ECG When compared with ECG of 07-NOV-2022 11:35, Premature ventricular complexes are no longer Present Confirmed by DONAVAN SINGH, TONIE ([id number]), editor publications OLAMIDE GEORGE ([id number]) on 12/27/2023 6:45:23 AM Referred By: DREW Confirmed By:TONIE GO MD
--- NOTE | 2023-12-22 12:01 | ECHOL_ITS ---
Reason For Study: SOB Procedure This was a limited 2D transthoracic echocardiogram. Exam performed portable in patient room. Left Ventricle Normal LV size. The left ventricular ejection fraction is 65 %. No regional wall motion abnormalities noted. Right Ventricle Normal RV size. Normal systolic function. Atria Normal left atrium. Normal right atrium. Mitral Valve Mild (1+) eccentric mitral valve insufficiency. Tricuspid Valve Normal tricuspid valve. Mild (1+) tricuspid valve insufficiency. Pulmonary artery systolic pressure is 28 mmHg. Aortic Valve Trisinus/trileaflet aortic valve. Mild focal aortic valve calcification. Pulmonic Valve Normal pulmonic valve. Great Vessels Mild to moderately dilated aortic root. The pulmonary artery is normal size. Inferior vena cava collapse with respiration. Pericardium/Pleural No pericardial effusion. MMode/2D Measurements & Calculations LVIDd: 4.3 cm IVSd: 1.1 cm LVOT diam: 2.0 cm LVIDs: 3.2 cm LVPWd: 0.79 cm LVOT area: 3.2 cm2 FS: 24.2 % Ao root diam: 4.1 cm asc Aorta Diam: 3.9 cm LAV(MOD-bp): 36.7 ml LA dimension: 3.3 cm LAV(MOD-bp) Indexed: 21.9 ml/m2 LAV(MOD-sp2): 41.4 ml LAV(MOD-sp4): 28.9 ml SV(MOD-sp4): 36.0 ml SV(sp4-el): 39.0 ml LVAd ap4: 20.9 cm2 LVLd ap4: 6.4 cm EDV(MOD-sp4): 53.9 ml EDV(sp4-el): 57.5 ml LVAs ap4: 10.8 cm2 LVLs ap4: 5.3 cm ESV(MOD-sp4): 17.9 ml ESV(sp4-el): 18.5 ml EF(MOD-sp4): 66.8 % EF(sp4-el): 67.8 % LA A4 area: 12.3 cm2 Doppler Measurements & Calculations Ao V2 max: 190.0 cm/sec LV V1 max: 89.8 cm/sec SV(LVOT): 62.7 ml Ao max P.5 mmHg LV V1 max P.2 mmHg Ao V2 mean: 136.8 cm/sec LV V1 mean P.8 mmHg Ao mean P.2 mmHg LV V1 mean: 64.2 cm/sec Ao V2 VTI: 42.2 cm LV V1 VTI: 19.5 cm AV (velocity ratio): 0.46 LISA(I,D): 1.5 cm2 LISA(V,D): 1.5 cm2 TR max steph: 244.4 cm/sec TR max P.9 mmHg ECHO/Echo, Limited Study Interpretation Summary The left ventricular ejection fraction is 65 %. Normal LV size. Pulmonary artery systolic pressure is 28 mmHg. Mild to moderately dilated aortic root. Ordering Physician: Slava Masters Performed By: Franklin Boyd and Student
[2023-12-22 12:26] LABS: Phosphorus 3.1 mg/dL (2.5-4.9)
[2023-12-22 12:50] LABS: Magnesium 1.9 mg/dL (1.6-2.6); Troponin-I HS 748 pg/mL (3.0-54.0)
[2023-12-22] MEDS: Pantoprazole Sodium 40 MG Tablet PO (12:51)
[2023-12-22] MEDS: 0.9% Saline Lock 10 ML Syringe IV (12:52)
[2023-12-22] MEDS: Enoxaparin 40 MG/0.4 ML Syringe SC (12:52)
[2023-12-22] MEDS: Acetaminophen 500 MG Tablet 1000 MG PO ×2 (13:02→21:15)
[2023-12-22 13:56] LABS: Troponin-I HS 779 pg/mL (3.0-54.0)
[2023-12-22 16:47] VITALS: BP 98/64; PULSE 83; RESP 16; TEMP 36.3; O2SAT 93
[2023-12-22] MEDS: Carvedilol 6.25 MG Tablet PO (16:51)
[2023-12-22 17:56] LABS: Troponin-I HS 716 pg/mL (3.0-54.0)
[2023-12-22 21:21] VITALS: BP 128/81; PULSE 69; RESP 18; TEMP 36.4; O2SAT 96
[2023-12-22] MEDS: DiphenhydrAMINE 25 MG Capsule PO (21:29)
--- NOTE | 2023-12-22 22:13 | PCM.HOSP.N ---
Hospitalist Note Outside facility called [facility] and noted read finalization on CT Chest obtained prior to the patien transition: No evidence of PE, mild dilation of the ascending aorta, left lower lobe pulmonary nodule.
[2023-12-23 03:28] VITALS: BP 120/64; PULSE 70; RESP 18; TEMP 36.4; O2SAT 98
[2023-12-23] MEDS: Loperamide 2 MG Capsule PO (05:05)
[2023-12-23] MEDS: Levothyroxine 88 MCG Tablet PO (05:05)
[2023-12-23 05:45] LABS: Absolute Lymphocyte Count 2.39 X10^3/uL (0.83-4.51); Absolute Neutrophil Count 2.2 X10^3/uL (2.0-7.7); Basophil# 0.04 X10^3/uL; Basophil% 0.8 % (0-1); Eosinophils% 1.9 % (0-5); Hematocrit 35.2 % (37-47); Hemoglobin 11.3 g/dL (12.0-15.0); Lymphocyte # 2.39 X10^3/ul (0.83-4.51); Lymphocyte % 46.4 % (19-41); Mean Corp Hgb Conc 32.1 g/dL (32-36); Mean Corpuscular Hgb 28.3 pg (27.0-32.0); Mean Corpuscular Volume 88.2 fL (81-99); Mean Platelet Vol. 10.3 fl (6.2-12.0); Monocyte# 0.38 X10^3/uL; Monocyte% 7.4 % (0-10); NRBC Flagged by Analyzer 0 % (0-5); Neutrophil # 2.23 X10^3/uL (2.7-7.7); Neutrophil % 43.3 % (47-70); Platelet Count 274 K/mm3 (150-450); RBC Distribution Width CV 14.6 % (11.6-14.6); RBC Distribution Width SD 47.5 fl (35.1-43.9); Red Blood Count 3.99 M/mm3 (4.2-5.4); White Blood Count 5.2 K/mm3 (4.4-11.0)
[2023-12-23 06:12] LABS: Anion Gap 6 (5-15); BUN 20 mg/dL (7-18); BUN/Creat Ratio 21.6 RATIO (10-20); Calcium,Total 9.1 mg/dL (8.5-10.1); Chloride 106 mmol/L (98-107); Creatinine, Serum 0.93 mg/dL (0.55-1.02); EST Glomerular Filtration Rate 62 mL/min (>60); Est Glom Filt Rate - Afr Amer 75 mL/min (>60); Estimated Creatinine Clearance 44.86 ml/min; Glucose 97 mg/dL (74-106); Potassium 3.5 mmol/L (3.5-5.1); Sodium Level 138 mmol/L (136-145); Thyroid Stim Hormone (TSH) 0.962 uIU/mL (0.358-3.740)
--- NOTE | 2023-12-23 07:45 | CON.PCM.CA_ITS ---
Assessment & Plan Assessment/Plan (1) PAF (paroxysmal atrial fibrillation): PLAN: Patient presents with paroxysmal atrial fibrillation. She is currently in sinus rhythm. She does not want to be anticoagulated and my recommendation at this time we to continue her current medical therapy obtain an echocardiogram. If no significant abnormalities are noted I would not recommend we make any changes. I think that her troponin elevation is secondary to demand ischemia. There is no reason for stress of a non-ST elevation myocardial infarction. (2) Essential hypertension: PLAN: Blood pressure appears under good control at this particular time I would not recommend we make any changes. HPI Consult Data Date of Consult: 12/23/23 HPI Narrative HPI Narrative: NANI HARDIN, is a 78 F who presents. She has a history of hypertension who presented to the hospital in [place] with palpitations. She said that she had had a previous incidental cerebrovascular accident in 2009 and an echo showed a PFO versus an ASD. She apparently had a 30-day event monitor which she says may have shown atrial fibrillation but she is not 100% sure about this. She had previously been on Eliquis, but she said that she did get significant reaction from the above and stopped it. She also has a history of hypertension and was put on amlodipine and she did not react well to this. She had been on lisinopril which she tolerated quite well but for reasons that were not entirely clear she also had this discontinued. She has had no dizziness or diaphoresis no near syncope or syncope as part of her work-up she also had an echocardiogram done which demonstrated preserved ejection fraction of 60% with stage I diastolic dysfunction there is mild diffuse mitral valve thickening and mild focal aortic valve thickening. The bubble study that was performed was positive for a patent foramen ovale. From a cardiac standpoint, the patient is doing well. She denies any palpitations, chest pain, pressure or heaviness. She does have occasional SOB with exertion-this is nothing new or worsening. She denies Orthopnea, and PND. She does not have bleeding issues; no blood in urine, stool or nosebleeds. She does acknowledges fatigue-She attributes this to her GI bleed. She is following with PCP for fatigue. She denies myalgias, or claudication. She does not have edema, or sudden weight gain. She does have occasional lightheadedness. She denies dizziness, syncopal or near syncope PFSH Medical History Hiatal hernia Essential hypertension History of cervical cancer Vitamin B12 deficiency Hypokalemia Anxiety and depression Polyneuropathy Neuropathy Post-COVID chronic fatigue Cataract Glaucoma Hearing loss Diverticulosis Colon polyp Hepatic cyst Gall bladder polyp Left elbow pain Degenerative scoliosis in adult patient Scoliosis Thoracic radiculopathy due to osteoarthritis of spine Degeneration, intervertebral disc, cervical Neck pain Low back pain Fibromyalgia Osteoporosis Female bladder prolapse Cystocele with prolapse Patent foramen ovale Bicuspid aortic valve Epigastric pain Abdominal pain Paresthesia Leg cramps Balance disorder Fatigue Lymphadenopathy, cervical Abnormal MRI of head Abnormal bone density screening Postmenopausal History of rectal cancer COVID-19 1st degree AV block Ovary absent Irritable bowel disease MVP (mitral valve prolapse) Ulcerative colitis Anal cancer GERD (gastroesophageal reflux disease) Vitamin D deficiency Hypothyroidism PAF (paroxysmal atrial fibrillation) Home Medications ?Medication ?Instructions ?Recorded ?Last Taken ?Type pantoprazole 40 mg tablet,delayed 40 mg PO DAILY ACID REFLUX 07/01/17 12/21/23 History release levothyroxine 88 mcg tablet 88 mcg PO MOTUWETHFR THYROID 05/17/22 12/22/23 History aspirin 81 mg tablet,delayed 81 mg PO DAILY HEART HEALTH 06/25/22 12/22/23 History release (Adult Aspirin Regimen) acetaminophen 500 mg capsule 1,000 mg PO Q6H PRN pain 10/15/22 Unknown History cholecalciferol (vitamin D3) 50 50 mcg PO DAILY SUPPLEMENT 10/15/22 12/21/23 History mcg (2,000 unit) capsule multivitamin (One Daily 1 tab PO DAILY HEALTH MAINTENANCE 10/15/22 12/21/23 History Multivitamin tablet) chlorpheniramine maleate 4 mg 4 mg PO Q8H PRN allergy 11/08/22 12/21/23 History tablet (Allergy (chlorpheniramine)) magnesium 250 mg tablet 250 mg PO DAILY PRN supplement 07/30/23 12/22/23 History carvedilol 6.25 mg tablet 6.25 mg PO BID heart #180 tabs 11/14/23 12/22/23 Rx hydrochlorothiazide 25 mg tablet 25 mg PO DAILY water pill #90 tabs 11/14/23 12/21/23 02:00 Rx 25 mg bismuth subsalicylate 262 mg/15 mL 524 mg PO Q30M PRN diarrhea 12/22/23 Unknown History oral suspension (Diarrhea Relief (bismuth subsalicylate)) potassium chloride 20 mEq 20 meq PO DAILY supplement 12/22/23 12/22/23 History tablet,extended release Allergy/AdvReac Type Severity Reaction Status Date / Time ofloxacin Allergy Mild OTHER Verified 07/30/23 14:32 amlodipine Allergy Swelling Verified 07/30/23 14:32 apixaban (From Eliquis) Allergy SWELLING Verified 07/30/23 14:32 atenolol (From Tenormin) Allergy PT UNSURE Verified 07/30/23 14:32 OF REACTION lisinopril Allergy Lip Verified 07/30/23 14:32 swelling Sulfa (Sulfonamide Allergy Other Verified 07/30/23 14:32 Antibiotics) brimonidine AdvReac Mild OTHER Verified 07/30/23 14:32 Family History Father Prostate cancer Grandmother Liver cancer Mother Hypertension Diabetes Brother Bladder cancer H/O heart surgery Other CAD (coronary artery disease) Heart disease Surgical History S/P bilateral cataract extraction History of tonsillectomy History of rectal surgery History of right oophorectomy Social History household members: spouse housing: house Smoking Status: Never smoker alcohol intake: never substance use type: does not use caffeine: Yes Type: coffee and tea ROS Constitutional Constitutional: Denies fever(s) or weight loss Eyes Eyes: Reports systems reviewed and no addt'l complaints, except as documented ENT HEENT: Reports systems reviewed and no addt'l complaints, except as documented Cardiovascular Cardiovascular: Denies chest pain at rest, chest pain with activity, dyspnea at rest, dyspnea on exertion, edema, palpitations or paroxysmal nocturnal dyspnea Respiratory/Chest Respiratory/Chest: Denies dyspnea on exertion, productive cough, shortness of breath at rest or shortness of breath with exertion Gastrointestinal Gastrointestinal: Denies change in bowel habits, nausea, vomiting or weight changes Genitourinary Genitourinary: Denies difficulty urinating Musculoskeletal Musculoskeletal: Denies joint stiffness or muscle weakness Integumentary Integumentary: Denies lesions Neurologic Neurologic: Denies dizziness or syncope Psychiatric Psychiatric: Denies anxiety Endocrine Endocrinology: Denies excessive sweating or fatigue Hematologic/Lymphatic Hematologic/Lymphatic: Denies anemia Allergic/Immunologic Allergic/Immunologic: Denies seasonal rhinorrhea Physical Exam Const alert, oriented x3 and no apparent distress General Appearance: cooperative HEENT hearing grossly normal bilaterally Head and Scalp: atraumatic Eyes EOMs intact bilaterally Neck General: normal visual inspection Chest inspection of chest normal and palpation of chest normal Resp normal respiratory effort Auscultation: clear to auscultation bilaterally Cardio regular rate, regular rhythm, S1 normal heart sound and S2 normal heart sound Jugular Venous Distention: JVD GI normal to inspection, nondistended, normoactive bowel sounds Extremity normal capillary refill and no pedal edema Peripheral Pulses: Yes pulses 2+ throughout and femoral pulses present Skin no rashes or lesions noted Neuro oriented x3 and CN's II-XII intact bilaterally Psych Appearance: grossly normal and appropriate Risk Stratification Risk Stratification Applicable: Yes Age >/= 65: Yes >/= 3 CAD Risk Factors (HTN, HLD, DM, family hx of CAD, or current smoker): No Aspirin Use in the Past 7 Days: No Severe Angina (>/= episodes in 24 hours): No EKG ST Changes >/= 0.5mm: No Positive Cardiac Marker: Yes LAXMI Risk Stratification Score: 2 LAXMI % Risk: 8% Risk Objective Data Vital Signs: Vital Signs Temp Pulse Resp BP Pulse Ox O2 Del Method 97.6 F L 70 18 120/64 98 Room Air 12/23/23 03:28 12/23/23 03:28 12/23/23 03:28 12/23/23 03:28 12/23/23 03:28 12/23/23 06:34 Oxygen Delivery Method Room Air Weight: 136 lb 14.513 oz Body Mass Index (BMI) 22.8 Intake & Output: Intake and Output for Last 24 Hours 12/21/23 12/22/23 12/23/23 23:59 23:59 23:59 Intake Total 520 / 520 120 / 120 Balance 520 / 520 120 / 120 Lab / Micro Data 12/23/23 05:28 12/23/23 05:28 Labs: Laboratory Results - last 24 hr 12/22/23 11:30: Phosphorus 3.1, Magnesium 1.9, Troponin I High Sens 748 H* 10/06/24 13:08: Troponin I High Sens 779 H* 12/22/23 17:03: Troponin I High Sens 716 H* 12/23/23 05:28: WBC 5.2, RBC 3.99 L, Hgb 11.3 L, Hct 35.2 L, MCV 88.2, MCH 28.3, MCHC 32.1, RDW Std Deviation 47.5 H, RDW Coeff of Reinaldo 14.6, Plt Count 274, MPV 10.3, Immature Gran % (Auto) 0.200, Neut % (Auto) 43.3 L, Lymph % (Auto) 46.4 H, [place] % (Auto) 7.4, Eos % (Auto) 1.9, Baso % (Auto) 0.8, Absolute Neuts (auto) 2.2, Absolute Lymphs (auto) 2.39, Nucleated RBC % 0, Sodium 138, Potassium 3.5, Chloride 106, Carbon Dioxide 26.0, Anion Gap 6, BUN 20 H, Creatinine 0.93, Estim Creat Clear Calc 44.86, Est GFR (MDRD) Af Amer 75, Est GFR (MDRD) Non-Af 62, B UN/Creatinine Ratio 21.6 H, Glucose 97, Calcium 9.1, TSH 0.962 Micro: Microbiology 12/22/23 13:51 Mucosa - Nose SARS-CoV-2, Influenza & RSV (PCR) - Final Cardiology Labs/Tests 12/22/23 11:30: Phosphorus 3.1, Magnesium 1.9 12/23/23 05:28: WBC 5.2, RBC 3.99 L, Hgb 11.3 L, Hct 35.2 L, MCV 88.2, MCH 28.3, MCHC 32.1, Plt Count 274, MPV 10.3, Immature Gran % (Auto) 0.200, Neut % (Auto) 43.3 L, Lymph % (Auto) 46.4 H, [place] % (Auto) 7.4, Eos % (Auto) 1.9, Baso % (Auto) 0.8, Absolute Neuts (auto) 2.2, Nucleated RBC % 0, Sodium 138, Potassium 3.5, Chloride 106, Carbon Dioxide 26.0, Anion Gap 6, BUN 20 H, Creatinine 0.93, Est GFR (MDRD) Af Amer 75, Est GFR (MDRD) Non-Af 62, BUN/Creatinine Ratio 21.6 H , Glucose 97, Calcium 9.1 Rhythm: EKG: ECHO: Stress Test: Cardiac Cath: PCI: CT Surgery: Holter monitor: EPS: PPM: CXR: Chest CT Scan:
[2023-12-23 09:25] VITALS: BP 103/82; PULSE 71; RESP 16; TEMP 36.4; O2SAT 94
[2023-12-23] MEDS: Pantoprazole Sodium 40 MG Tablet PO (10:24)
[2023-12-23] MEDS: Acetaminophen 500 MG Tablet 1000 MG PO (10:24)
[2023-12-23] MEDS: Potassium Chloride Oral Tablet 20 MEQ 40 MEQ PO (10:25)
[2023-12-23] MEDS: Aspirin E.C. 81 MG Tablet PO (10:25)
[2023-12-23] MEDS: Cholecalciferol (VIT D3) 25 MCG TABLET (1,000 UNITS) 50 MCG PO (10:26)
[2023-12-23] MEDS: Multivitamins,Therapeutic Tablet 1 TABLET PO (10:27)
[2023-12-23] MEDS: hydroCHLOROthiazide 25 MG Tablet PO (10:27)
--- NOTE | 2023-12-23 10:50 | CASEMGMT ---
RN CM Face to Face with patient for initial transition planning/care coordination assessment. RN CM introduced self and role at [facility]. Patient lying in bed, alert and oriented. Patient willing to participate in assessment and is able to answer all questions appropriately. Care providers, pharmacy, and demographics verified. Strata: 1 PCP: Russel DOMÍNGUEZ Specialists: Oumar, lead principal technical architect; Torey CHAIN SALES REPRESENTATIVE Preferred Pharmacy: [facility] Insurance: [facility] Prescription Benefit: yes Living Will/HPOA: yes, daughter Ena You LNOK: , daughter Living Arrangements: Patient lives with in a mobile home with 5 steps and railing to enter. Patient is independent at home. Transportation: self, daughter DME/HHC: Patient has cane, crutches, walker, grab bars at home. No previous HHC or SNF. Patient wishes to discharge home, denies need for home health at this time. Patient states he has no further needs or concerns at this time. CM to follow for discharge planning needs that may arise. Disposition Plan: Patient to discharge home with family support and follow-up plans in place. Janice VAUGHN, RN, CM
[2023-12-23 12:06] VITALS: BP 136/78; PULSE 73; RESP 16; TEMP 36.4; O2SAT 94
[2023-12-23] MEDS: Carvedilol 6.25 MG Tablet PO (12:08)
--- NOTE | 2023-12-23 14:12 | CHAPLAIN ---
Type of Pastoral Visit _x__ Initial Visit ___ Follow-up Visit ___ On-call Visit ___ General Patient Visit ___ Spiritual Assessment ___ Family Conference ___ Bereavement ___ Rapid Response ___ Code Blue ___ Other (describe below) Pastoral Care Referral From _x__ Patient ___ Family ___ Nurse ___ Physician ___ Multicultural Manager ___ Maintenance Mechanic [place] ___ Other (describe below) Sacrament/Intervention _x__ Active listening ___ Anointing ___ Latter-Day ___ Bereavement ___ Communion _x__ Charla exploration ___ ___ Life review _x__ Prayer ___ Reconciliation ___ Sacrament of Sick ___ Supportive presence ___ Wedding ___ Other (describe below) Pastoral Comments patient reports on her admission and that initial issue has been resolved; pt now has a headache and would like to be outside to clear my head; pt given time to talk and be reflective on her situation and her needs; pt is member of [employer] and welcomes a prayer for support
--- NOTE | 2023-12-23 15:24 | PCM.DC.SUM ---
Providers Date of Admission: 12/22/23 Primary Care Physician: ASHLIE Tan Consultations 12/22/23 11:48 Consult: Cardiology Routine Consulting Provider: Jae Callaway Reason for Consult: elevated troonin, PAFIB, Mild SOB EMERGENT Consult: No MD Notified: Yes Date Notified: 12/22/23 Time Notified: 11:48 Method of Notification: Verbal Reason For Visit: ELEVATED TROP, AFIB Diagnosis Discharge Diagnosis (1) PAF (paroxysmal atrial fibrillation): Status: Chronic Code(s): I48.0 - Paroxysmal atrial fibrillation (2) Essential hypertension: Status: Chronic Code(s): I10 - Essential (primary) hypertension Medications at Discharge Home Medications pantoprazole 40 mg tablet,delayed release 40 mg PO DAILY ACID REFLUX 07/01/17 levothyroxine 88 mcg tablet 88 mcg PO MOTUWETHFR THYROID 05/17/22 aspirin 81 mg tablet,delayed release (Adult Aspirin Regimen) 81 mg PO DAILY HEART HEALTH 06/25/22 acetaminophen 500 mg capsule 1,000 mg PO Q6H PRN pain 10/15/22 cholecalciferol (vitamin D3) 50 mcg (2,000 unit) capsule 50 mcg PO DAILY SUPPLEMENT 10/15/22 multivitamin (One Daily Multivitamin tablet) 1 tab PO DAILY HEALTH MAINTENANCE 10/15/22 chlorpheniramine maleate 4 mg tablet (Allergy (chlorpheniramine)) 4 mg PO Q8H PRN allergy 11/08/22 magnesium 250 mg tablet 250 mg PO DAILY PRN supplement 07/30/23 carvedilol 6.25 mg tablet 6.25 mg PO BID heart #180 tabs 11/14/23 hydrochlorothiazide 25 mg tablet 25 mg PO DAILY water pill #90 tabs 11/14/23 bismuth subsalicylate 262 mg/15 mL oral suspension (Diarrhea Relief (bismuth subsalicylate)) 524 mg PO Q30M PRN diarrhea 12/22/23 potassium chloride 20 mEq tablet,extended release 20 meq PO DAILY supplement 12/22/23 Hospital Course Procedures None, 2-D Echocardiogram and EKG Summary of Care Provided Minutes Spent on Discharge: 38 Hospital Course: Mrs. Edwin malone is a 78-year-old white female who presented to outside hospital for palpitations on 12/22/2023. She indicated she woke up not feeling well with a headache and congestion. She felt it was her allergies. She also felt she had some mild periorbital swelling and redness that has since resolved. Upon presentation outside facility she reported she had palpitations at 7 PM on the fifth with associated shortness of breath. She reported she has paroxysmal atrial fibrillation however on review of cardiology documentation she has had previous event monitor and had no events of A-fib recorded. The patient has multiple allergies to medications and intolerances. She was recently started on hydrochlorothiazide and was complaining of intermittent bilateral lower and upper extremity tingling and numbness that she currently does not have, the feeling that her eyes are sinking in, and general malaise. She states for about 3-4 doses prior to presentation she stopped taking her hydrochlorothiazide. I suspect this is why her blood pressure was elevated at the time of presentation. She was admitted to the hospital on 12/22/2019 for and cardiology was consulted as her troponin levels were noted to be elevated in the outpatient setting. She has had this previously and had extensive workup both with echocardiogram and stress test which were unremarkable. Cardiology evaluated the patient earlier today and does have paroxysmal atrial fibrillation documented but did note that she did not want to be anticoagulated. Echocardiogram was performed and shows no changes from previous with a normal EF at 65%, no wall motion abnormalities, and right ventricular systolic pressure of 20 mmHg. It is felt that her troponin elevation is likely related to subendocardial demand ischemia and no further noninvasive or invasive testing was recommended by cardiology. She does follow with cardiology as an outpatient has an appointment upcoming. I have also instructed her to follow-up with her primary care physician within the next 2 weeks for follow-up from the hospital. No medication changes were made at the time of discharge. Discharge diagnosis Paroxysmal atrial fibrillation Essential hypertension Troponin elevation secondary to demand ischemia-subendocardial PFO History of anal cancer GERD Vitamin D deficiency MVP IBS Chronic first-degree heart block Hypothyroidism History of osteoporosis Fibromyalgia Scoliosis Seasonal allergies Physical Exam Const alert, oriented x3, no apparent distress, average body habitus, no limitations, healthy appearing and well nourished Constitutional Narrative: Older, white female, lying in bed, appears comfortable, nontoxic General Appearance: cooperative, comfortable, well kempt and well developed Orientation / Consciousness: awake, oriented to person, oriented to place and oriented to time Exam Limitations: no limitations HEENT normocephalic, head/scalp atraumatic, hearing grossly normal bilaterally and moist oral mucous membranes HEENT Narrative: Mallampati 2-3, no thrush Resp normal respiratory effort, no retractions, no use of accessory muscles and clear to auscultation bilaterally Auscultation: Negative for rales, rhonchi or wheezes Cardio regular rate, regular rhythm, S1 normal heart sound, S2 normal heart sound, no murmurs, no rub, no gallops and no clicks GI normal to inspection, nondistended, normoactive bowel sounds, soft to palpation and non-tender Extremity no clubbing, cyanosis or edema Extremity Narrative: Pedal and radial pulses are 2+ Neuro oriented x3, moves all extremities and no focal motor deficits Speech: speech normal Psych affect normal Psych Narrative: Eye contact is good, patient interacts appropriately, patient does appear mildly anxious which is her baseline based on previous interaction Weight / BMI Weight Weight: 62.1 kg Body Mass Index (BMI) 22.8 ABG / Lab / Microbiology Data 12/23/23 05:28 12/23/23 05:28 Laboratory: Laboratory Results - last 24 hr 12/22/23 17:03: Troponin I High Sens 716 H* 12/23/23 05:28: WBC 5.2, RBC 3.99 L, Hgb 11.3 L, Hct 35.2 L, MCV 88.2, MCH 28.3, MCHC 32.1, RDW Std Deviation 47.5 H, RDW Coeff of Reinaldo 14.6, Plt Count 274, MPV 10.3, Immature Gran % (Auto) 0.200, Neut % (Auto) 43.3 L, Lymph % (Auto) 46.4 H, Titus % (Auto) 7.4, Eos % (Auto) 1.9, Baso % (Auto) 0.8, Absolute Neuts (auto) 2.2, Absolute Lymphs (auto) 2.39, Nucleated RBC % 0, Sodium 138, Potassium 3.5, Chloride 106, Carbon Dioxide 26.0, Anion Gap 6, BUN 20 H, Creatinine 0.93, Estim Creat Clear Calc 44.86, Est GFR (MDRD) Af Amer 75, Est GFR (MDRD) Non-Af 62, BUN/Creatinine Ratio 21.6 H, Glucose 97, Calcium 9.1, TSH 0.962 Microbiology: Microbiology 10/06/24 13:51 Mucosa - Nose SARS-CoV-2, Influenza & RSV (PCR) - Final Radiography Diagnostic Testing: Radiology Impression Echocardiogram 12/22/23 12:01 Interpretation Summary The left ventricular ejection fraction is 65 %. Normal LV size. Pulmonary artery systolic pressure is 28 mmHg. Mild to moderately dilated aortic root. Ordering Physician: Slava Masters Performed By: Franklin Boyd and Student D/C Instructions Discharge Diet: Low fat / Low cholesterol Discharge Activity: Return to Normal Activity Meaningful Use Info Meaningful Use Meaningful Use Diagnoses (Choose all that apply): None applicable Ischemic Stroke Statin Dosing Therapy Reference: STATIN DOSE THERAPY REFERENCE: * Patients > 75 years receive moderate or high dose statin therapy. * Patients 75 years or YOUNGER should receive HIGH intensity statin dose unless contraindicated. You will be required to document reason for non-treatment if statin daily dose does not meet guidelines. HIGH DOSE STATIN THERAPY DAILY Atorvastatin > than or = to 40 mg Rosuvastatin > than or = to 20 mg Amlodipine + Atorvastatin > than or = to 2.5/40 mg Ezetimibe + Simvastatin 10/80 mg Simvastatin 80mg Discharge Plan Admission Admit Date/Time: 12/22/23 10:45 Primary Reason for Your Visit: palpitations Attending Provider: Christen Maza Primary Care Provider: Alisia Goode Consulting Providers: Halle Wells; Jae Callaway; Slava Masters Discharge Orders/Prescriptions Prescriptions: Continued levothyroxine 88 mcg tablet 88 mcg PO MOTUWETHFR cholecalciferol (vitamin D3) 50 mcg (2,000 unit) capsule 50 mcg PO DAILY multivitamin [One Daily Multivitamin] Tablet 1 tab PO DAILY acetaminophen 500 mg capsule 1,000 mg PO Q6H PRN (Reason: pain) magnesium 250 mg tablet 250 mg PO DAILY PRN (Reason: supplement) pantoprazole 40 MG tablet 40 mg PO DAILY chlorpheniramine maleate [Allergy (chlorpheniramine)] 4 mg tablet 4 mg PO Q8H PRN (Reason: allergy) Rx Instructions: do not exceed 2 doses per 24 hrs potassium chloride 20 mEq tablet extended release 20 meq PO DAILY bismuth subsalicylate [Diarrhea Relief (bismuth subs)] 262 mg/15 mL suspension 524 mg PO Q30M PRN (Reason: diarrhea) Rx Instructions: do not exceed 8 doses in a 24 hour period aspirin [Adult Aspirin Regimen] 81 mg tablet,delayed release (DR/EC) 81 mg PO DAILY carvedilol 6.25 mg tablet 6.25 mg PO BID Qty: 180 3RF Rx Instructions: must administer with a meal/food hydrochlorothiazide 25 mg tablet 25 mg PO DAILY Qty: 90 3RF Referrals / Follow Up: Alisia Goode MAINTENANCE DATA ANALYST-C [Primary Care Provider] - Within 1 Month Yanna Gomez NP, MAINTENANCE DATA ANALYST-C [Non-Staff -Ordering Privileges] - Within 2 Weeks Disposition Disposition (needs filled in before D/C Order can be placed): Home, Self Care Charges/Coding Visit Charges Inpatient E&M: 28478 Disch Hosp
--- NOTE | 2023-12-23 15:35 | PHA.DC.MR.R ---
Pharmacy [place] Med Reconciliation Pharmacy Service has performed discharge medication reconciliation for this patient. The patient's discharge medication list was reviewed for discrepancies and discrepancies were resolved. Medications at Discharge Home Medications pantoprazole 40 mg tablet,delayed release 40 mg PO DAILY ACID REFLUX 07/01/17 levothyroxine 88 mcg tablet 88 mcg PO MOTUWETHFR THYROID 05/17/22 aspirin 81 mg tablet,delayed release (Adult Aspirin Regimen) 81 mg PO DAILY HEART HEALTH 06/25/22 acetaminophen 500 mg capsule 1,000 mg PO Q6H PRN pain 10/15/22 cholecalciferol (vitamin D3) 50 mcg (2,000 unit) capsule 50 mcg PO DAILY SUPPLEMENT 10/15/22 multivitamin (One Daily Multivitamin tablet) 1 tab PO DAILY HEALTH MAINTENANCE 10/15/22 chlorpheniramine maleate 4 mg tablet (Allergy (chlorpheniramine)) 4 mg PO Q8H PRN allergy 11/08/22 magnesium 250 mg tablet 250 mg PO DAILY PRN supplement 07/30/23 carvedilol 6.25 mg tablet 6.25 mg PO BID heart #180 tabs 11/14/23 hydrochlorothiazide 25 mg tablet 25 mg PO DAILY water pill #90 tabs 11/14/23 bismuth subsalicylate 262 mg/15 mL oral suspension (Diarrhea Relief (bismuth subsalicylate)) 524 mg PO Q30M PRN diarrhea 12/22/23 potassium chloride 20 mEq tablet,extended release 20 meq PO DAILY supplement 12/22/23
--- NOTE | 2023-12-23 15:55 | CASEMGMT ---
Patient has order to discharge. RN CM in to discuss needs at discharge. Patient denies needs or help at discharge. Patient had no further questions or concerns.
[2023-12-23 16:25] VITALS: BP 126/84; PULSE 78; RESP 14; TEMP 36.1
== END 2023-12-23 17:38 | disposition home or self-care (01) | DRG 309 ==
PROVIDERS: Internal Medicine; Admitting Provider Student in an Organized Health Care Education/Training Program; PCP Nurse Practitioner Family; Visit Provider Internal Medicine
DX: I48.0 Paroxysmal atrial fibrillation (principal); I24.89 Other forms of acute ischemic heart disease; I10 Essential (primary) hypertension; E87.6 Hypokalemia; Z86.16 Personal history of COVID-19; Z79.82 Long term (current) use of aspirin; Z79.899 Other long term (current) drug therapy
CPT/HCPCS: 36415; 80048; 83735; 84100; 84443; 84484; 85025; 87631; 93005; 93308; 94668; A4216

== ENCOUNTER → 2024-09-10 | Outpatient (CLI) | payer MEDICARE, SELFPAY ==
[2024-09-12 15:08] LABS: Immunoglobulin A 242 mg/dL (64-422); t-Transglutaminase IgA 3 U/mL (0-3)
== END | disposition home or self-care (01) ==
LOC: LAB 15:37
PROVIDERS: PCP Nurse Practitioner Family; Referring Provider Nurse Practitioner Acute Care; Visit Provider Nurse Practitioner Acute Care
DX: R19.7 Diarrhea, unspecified (principal)
CPT/HCPCS: 36415; 82784; 83516

== ENCOUNTER → 2025-01-19 | Outpatient (CLI) | payer MEDICARE, SELFPAY ==
[2025-01-19 15:03] LABS: Hematocrit 38.1 % (37-47); Hemoglobin 12.3 g/dL (12.0-15.0); Immature Granulocytes Count 0.020 X10^3/uL (0.0-0.0); Mean Corp Hgb Conc 32.3 g/dL (32-36); Mean Corpuscular Volume 89.4 fL (81-99); Mean Platelet Vol. 11.0 fl (6.2-12.0); NRBC Flagged by Analyzer 0 % (0-5); Platelet Count 322 K/mm3 (150-450); RBC Distribution Width CV 15.1 % (11.6-14.6); RBC Distribution Width SD 50.0 fl (35.1-43.9); Red Blood Count 4.26 M/mm3 (4.2-5.4); White Blood Count 5.3 K/mm3 (4.4-11.0)
[2025-01-19 15:37] LABS: Anion Gap 13 (5-15); BUN 12 mg/dL (4-19); BUN/Creat Ratio 15.6 RATIO (10-20); Calcium,Total 9.5 mg/dL (7.6-11.0); Carbon Dioxide 25.3 mmol/L (21.0-32.0); Chloride 101 mmol/L (98-108); Glucose 113 mg/dL (70-99); Magnesium 1.4 mg/dL (1.5-2.2); Potassium 4.0 mmol/L (3.3-5.1)
== END | disposition home or self-care (01) ==
LOC: LAB 14:17
PROVIDERS: PCP Internal Medicine; Referring Provider Physician Assistant Medical; Visit Provider Physician Assistant Medical
DX: R19.7 Diarrhea, unspecified (principal); I48.0 Paroxysmal atrial fibrillation
CPT/HCPCS: 36415; 80048; 83735; 85025